=== PATIENT | male | born 1980 | race Hispanic/Latino ===

== ENCOUNTER 2021-08-31 09:21 | Inpatient (IN) | payer SELFPAY ==
--- NOTE | 2021-08-31 09:54 | Emergency Department Report ---
ED Chest Pain HPI - General Chief Complaint: Dyspnea/Respdistress Stated Complaint: RIGHT RIB PAIN Time Seen by Provider: 08/31/21 09:37 Source: patient, EMS Mode of arrival: Stretcher Limitations: No Limitations - History of Present Illness Initial Comments: 40-year-old male presents to the emergency department via EMS from home with complaint of right-sided chest pain and shortness of breath that started about 3 days ago while the patient was sleeping. He denies any past medical history. He does smoke cigarettes but denies any illicit drug use or alcohol dependence. He did not take anything, nor was given anything, for his symptoms prior to presentation today. The patient has a room air pulse ox of about 88 to 91% and he has signs of shortness of breath. No recent travel or sick contacts at home. - Related Data Allergies Allergy/AdvReac Type Severity Reaction Status Date / Time No Known Allergies Allergy Verified 08/31/21 09:26 Heart Score - HEART Score History: Slightly suspicious EKG: Non-specific Age: < 45 Risk factors: 1-2 risk factors Troponin: < normal limit HEART Score: 2 - EKG Read Time Time EKG Completed: 10:35 EKG Read Time: 10:36 - Critical Actions Critical Actions: 0-3 pts:0.9-1.7%risk of adverse cardiac event.Candidate for discharge ED Review of Systems ROS: Stated complaint: RIGHT RIB PAIN Other details as noted in HPI Comment: All other systems reviewed and negative Constitutional: denies: chills, fever Eyes: denies: eye pain, vision change ENT: denies: ear pain, throat pain Respiratory: shortness of breath. denies: cough Cardiovascular: chest pain. denies: edema Gastrointestinal: denies: abdominal pain, vomiting Genitourinary: denies: dysuria, discharge Musculoskeletal: denies: back pain, arthralgia Skin: denies: rash, lesions Neurological: denies: headache, weakness ED Past Medical Hx - Past Medical History Previous Medical History?: No - Surgical History Past Surgical History?: No ED Physical Exam - General Limitations: No Limitations - Other Other exam information: GENERAL: The patient is ill-appearing. HENT: Normocephalic. Atraumatic. Patient has moist mucous membranes. EYES: Extraocular motions are intact. NECK: Supple. Trachea is midline. CHEST/LUNGS: Clear to auscultation. There is tachypnea with shallow respirations. At points the patient appears to be hyperventilating. HEART/CARDIOVASCULAR: Regular. There is mild to moderate tachycardia. There is no murmur. ABDOMEN: Abdomen is soft. Right upper quadrant abdominal tenderness to palpation. No guarding. Patient has normal bowel sounds. There is no abdominal distention. SKIN: Skin is warm and dry. NEURO: The patient is awake, alert, and oriented. The patient is cooperative. The patient has no focal neurologic deficits. Normal speech. MUSCULOSKELETAL: There is no tenderness or deformity. There is no limitation range of motion. ED Course Vital Signs 08/31/21 08/31/21 08/31/21 09:26 09:50 10:19 Temperature 98.7 F Pulse Rate 112 H Respiratory 16 12 Rate Blood Pressure 148/100 [Left] O2 Sat by Pulse 98 93 Oximetry 08/31/21 14:38 Temperature Pulse Rate 84 Respiratory 16 Rate Blood Pressure 129/77 [Left] O2 Sat by Pulse 96 Oximetry - Consultations Consultation #1: 08/31/21 15:22 I spoke to the kettle firer on-call, Dr. Han. We discussed the patient's presentation, labs, imaging studies. They will consult on the patient. NEIL score - Neil Score Age > 65: (0) No Aspirin use within the Past 7 Days: (0) No 3 or more CAD Risk Factors: (0) No 2 or more Angina events in past 24 hrs: (1) Yes Known CAD with more than 50% Stenosis: (0) No Elevated Cardiac Markers: (0) No ST Deviation Greater than 0.5mm: (0) No NEIL Score: 1 ED Medical Decision Making - Lab Data Result diagrams: 08/31/21 10:09 08/31/21 10:09 Lab Results 08/31/21 08/31/21 08/31/21 Range/Units 10:09 10:09 10:09 WBC 19.7 H (4.5-11.0) K/mm3 RBC 5.42 H (3.65-5.03) M/mm3 Hgb 16.3 H (11.8-15.2) gm/dl Hct 49.8 H (35.5-45.6) % MCV 92 (84-94) fl MCH 30 (28-32) pg MCHC 33 (32-34) % RDW 13.2 (13.2-15.2) % Plt Count 404 (140-440) K/mm3 Lymph % (Auto) 9.2 L (13.4-35.0) % [place] % (Auto) 6.5 (0.0-7.3) % Eos % (Auto) 0.1 (0.0-4.3) % Baso % (Auto) 0.5 (0.0-1.8) % Lymph # (Auto) 1.8 (1.2-5.4) K/mm3 [place] # (Auto) 1.3 H (0.0-0.8) K/mm3 Eos # (Auto) 0.0 (0.0-0.4) K/mm3 Baso # (Auto) 0.1 (0.0-0.1) K/mm3 Seg Neutrophils % 83.7 H (40.0-70.0) % Seg Neutrophils # 16.5 H (1.8-7.7) K/mm3 PT 14.0 (12.2-14.9) Sec. INR 0.97 (0.87-1.13) D-Dimer 1510.13 H (0-234) ng/mlDDU Sodium 132 L (137-145) mmol/L Potassium 4.5 (3.6-5.0) mmol/L Chloride 96.5 L (98-107) mmol/L Carbon Dioxide 24 (22-30) mmol/L Anion Gap 16 mmol/L BUN 9 (9-20) mg/dL Creatinine 0.9 (0.8-1.3) mg/dL Estimated GFR > 60 ml/min BUN/Creatinine Ratio 10 % Glucose 140 H (75-100) mg/dL Calcium 9.4 (8.4-10.2) mg/dL Total Bilirubin 2.00 H (0.1-1.2) mg/dL AST 57 H (5-40) units/L ALT 120 H (7-56) units/L Alkaline Phosphatase 595 H (35-129) units/L Troponin T < 0.010 (0.00-0.029) ng/mL NT-Pro-B Natriuret Pep 18.81 (0-450) pg/mL Total Protein 8.6 H (6.3-8.2) g/dL Albumin 3.5 L (3.9-5) g/dL Albumin/Globulin Ratio 0.7 % Lipase (13-60) units/L 08/31/21 Range/Units 10:09 WBC (4.5-11.0) K/mm3 RBC (3.65-5.03) M/mm3 Hgb (11.8-15.2) gm/dl Hct (35.5-45.6) % MCV (84-94) fl MCH (28-32) pg MCHC (32-34) % RDW (13.2-15.2) % Plt Count (140-440) K/mm3 Lymph % (Auto) (13.4-35.0) % Sebastian % (Auto) (0.0-7.3) % Eos % (Auto) (0.0-4.3) % Baso % (Auto) (0.0-1.8) % Lymph # (Auto) (1.2-5.4) K/mm3 Sebastian # (Auto) (0.0-0.8) K/mm3 Eos # (Auto) (0.0-0.4) K/mm3 Baso # (Auto) (0.0-0.1) K/mm3 Seg Neutrophils % (40.0-70.0) % Seg Neutrophils # (1.8-7.7) K/mm3 PT (12.2-14.9) Sec. INR (0.87-1.13) D-Dimer (0-234) ng/mlDDU Sodium (137-145) mmol/L Potassium (3.6-5.0) mmol/L Chloride (98-107) mmol/L Carbon Dioxide (22-30) mmol/L Anion Gap mmol/L BUN (9-20) mg/dL Creatinine (0.8-1.3) mg/dL Estimated GFR ml/min BUN/Creatinine Ratio % Glucose (75-100) mg/dL Calcium (8.4-10.2) mg/dL Total Bilirubin (0.1-1.2) mg/dL AST (5-40) units/L ALT (7-56) units/L Alkaline Phosphatase (35-129) units/L Troponin T (0.00-0.029) ng/mL NT-Pro-B Natriuret Pep (0-450) pg/mL Total Protein (6.3-8.2) g/dL Albumin (3.9-5) g/dL Albumin/Globulin Ratio % Lipase 14 (13-60) units/L - EKG Data -: EKG Interpreted by Me EKG shows normal: sinus rhythm, axis, intervals, QRS complexes, ST-T waves Rate: tachycardia (106 bpm) - EKG Data When compared to previous EKG there are: previous EKG unavailable Interpretation: normal EKG (With tachycardia at 106 bpm) - Radiology Data Radiology results: image reviewed interpreted by me: Chest x-ray does not show any acute process. There are no pleural effusions, obvious pneumonia and there is no pneumothorax. No widened mediastinum. Abdominal x-ray shows nonspecific nonobstructive bowel gas. No free air. CTA CHEST WITH CONTRAST INDICATION / CLINICAL INFORMATION: SOB, elevated dimer 100 ML OMNI 350 . TECHNIQUE: Axial CT images were obtained through the chest after injection of IV contrast. 3 plane MIP and/or 3D reconstructions were produced. All CT scans at this location are performed using CT dose reduction for [employer] by means of automated exposure control. COMPARISON: None available. FINDINGS: Study is limited by breathing motion artifact. PULMONARY ARTERIES: No pulmonary emboli within the limits of this study. THORACIC AORTA: No significant abnormality. HEART: No significant abnormality. CORONARY ARTERY CALCIFICATION: None. MEDIASTINUM / MICHELLE: No significant abnormality. PLEURA: There is a very small amount of right pleural fluid. No pneumothorax. LUNGS: There is airspace opacity posteriorly in the right upper and lower lobe and in the left lower lobe . ADDITIONAL FINDINGS: None. UPPER ABDOMEN: There is cholelithiasis. SKELETAL STRUCTURES: No acute abnormality. IMPRESSION: 1. No CT evidence for pulmonary embolism within the limits of this study. 2. There is mild airspace opacity posteriorly bilaterally is likely represents atelectasis but pneumonia is included in the differential diagnosis. 3. There is a small right pleural effusion. 4. There is cholelithiasis. CT ABDOMEN AND PELVIS WITH CONTRAST INDICATION / CLINICAL INFORMATION: Abd p ain, elevated lft and bili 100 ML OMNI 350. TECHNIQUE: Axial CT images were obtained through the abdomen and pelvis after 100 cc of Omnipaque [address] scans at this location are performed using CT dose reduction for ALARA by means of automated exposure control. COMPARISON: None available. FINDINGS: LIVER: No discrete mass lesion is seen. There is dilatation of intrahepatic ducts in the left lobe of the liver. The common bile duct is normal in diameter. No discrete mass lesion is identified GALLBLADDER: Cholelithiasis BILE DUCTS: There is dilatation of intrahepatic ducts in the left lobe the liver. The cause for this dilatation is not identified. The common bile duct is normal in diameter. PANCREAS: No significant abnormality. SPLEEN: No significant abnormality. ADRENALS: No significant abnormality. RIGHT KIDNEY / URETER: No significant abnormality. LEFT KIDNEY / URETER: No significant abnormality. STOMACH / SMALL BOWEL: No significant abnormality. COLON: No significant abnormality. APPENDIX: No significant abnormality. PERITONEUM: No free fluid. No free air. No fluid collection. LYMPH NODES: No significant adenopathy. AORTA / ARTERIES: No significant abnormality. IVC / VEINS: No significant abnormality. URINARY BLADDER: No significant abnormality. REPRODUCTIVE ORGANS: No significant abnormality. ADDITIONAL FINDINGS: None. SKELETAL SYSTEM: No significant abnormality. IMPRESSION: 1. There is dilatation of intrahepatic bile ducts in the left lobe the liver. The cause is not identified. No mass lesion is seen. Common bile duct is normal in diameter. 2. There is no obstruction, inflammation, or free air. There are no abnormal fluid collections. - Medical Decision Making This patient initially presented with a complaint of right-sided chest pain that has been going on for the past 3 days. The patient has a room air oxygen saturation of 88% and appears in some respiratory distress with tachypnea, shallow respirations and appears to be hyperventilating. The patient was placed on oxygen via nasal cannula and then moved up to a Venturi mask. Chest x-ray does not show any pneumothorax, pneumonia, pleural effusions, widened mediastinum, or any other acute process. He was given some IV fluid resuscitation and a dose of IV analgesia with some mild improvement. At this point the patient started saying that the pain is no longer in the chest, but in the abdomen. He does have reproducible right upper quadrant abdominal tenderness to palpation without any guarding. Abdominal x-ray shows nonspecific nonobstructive bowel gas, no free air. Patient's labs show a leukocytosis of about 20,000, elevated LFTs and bilirubin, a very elevated D-dimer of about 1500. First negative troponin. The patient had a CT angiography of the chest, as well as a CT of the abdomen and pelvis with IV contrast. There is no evidence of pulmonary embolism or dissection. It shows bilateral basilar posterior atelectasis versus pneumonia, but I am leaning more towards pneumonia. Patient has cholelithiasis and there is intrahepatic bile duct dilatation without common bile duct dilatation. Patient has received multiple doses of IV analgesia, IV fluid resuscitation, IV antibiotics and a dose of Decadron. The patient is not vaccinated for COVID-19, although apparently he previously had a COVID-19 infection with the delta varia nt. Given the CT chest appearance and the hypoxia, we will still keep the patient as a PUI. GI has been contacted and consulted. Patient will be admitted to the hospital for further evaluation and treatment was accepted for patient by the hospitalist, Dr. Espana. Critical Care Time: Yes Critical care time in (mins) excluding proc time.: 35 Critical care attestation.: If time is entered above; I have spent that time in minutes in the direct care of this critically ill patient, excluding procedure time. Critical care time was spent on this patient in doing his initial evaluation, multiple reevaluations, ordering and interpretation of labs and imaging, multiple doses of IV analgesia, supplemental oxygen for his hypoxia, IV antibiotics, IV fluid resuscitation, multiple discussions with the patient. Critical Care Time: 35 minutes ED Disposition Clinical Impression: Suspected 2019 novel coronavirus infection, Hypoxia, Pneumonia, Cholelithiasis, Intrahepatic bile duct dilation, Elevated bilirubin, Transaminitis Disposition: ADMITTED INPATIENT Is pt being admited?: Yes Condition: Serious Instructions: Bacterial Pneumonia (ED) Referrals: PRIMARY CARE, [Primary Care Provider] - 3-5 Days Time of Disposition: 14:59
[2021-08-31] MEDS ORDERED: SODIUM CHLORIDE 0.9% 1000 ML 1,000 ML IV ONE (10:08)
[2021-08-31] MEDS ORDERED: MORPHINE 4 MG/1 ML INJ IV ONE ×2 (10:08→12:47)
--- NOTE | 2021-08-31 10:33 | XRay Report ---
CHEST 1 VIEW INDICATION: Shortness of breath, right sided CP. COMPARISON: None. FINDINGS: Support devices: None. Heart: Normal. Lungs/Pleura: There are low lung volumes with atelectatic changes in the bases. Lungs are otherwise c lear. No pleural effusion or pneumothorax. IMPRESSION: 1. No acute findings. Signer Name: Vimal Bautista MD Signed: 08/31/2021 10:28 AM Workstation Name: [id number]
[2021-08-31 11:15] LABS: Alanine Aminotransferase 120 units/L (7-56); Albumin 3.5 g/dL (3.9-5); BUN/Creatinine Ratio 10; Blood Urea Nitrogen 9 mg/dL (9-20); Calcium 9.4 mg/dL (8.4-10.2); Hemolysis Index 3
[2021-08-31 11:32] LABS: Basophils # (Auto) 0.1 K/mm3 (0.0-0.1); Basophils % (Auto) 0.5 % (0.0-1.8); Eosinophils % (Auto) 0.1 % (0.0-4.3); Hematocrit 49.8 % (35.5-45.6); Hemoglobin 16.3 gm/dl (11.8-15.2); Lymphocytes # (Auto) 1.8 K/mm3 (1.2-5.4); Lymphocytes % (Auto) 9.2 % (13.4-35.0); Mean Corpuscular HGB Conc 33 % (32-34); Mean Corpuscular Volume 92 fl (84-94); Monocytes # (Auto) 1.3 K/mm3 (0.0-0.8); Monocytes % (Auto) 6.5 % (0.0-7.3); Platelet Count 404 K/mm3 (140-440); Red Blood Count 5.42 M/mm3 (3.65-5.03); Red Cell Distribution Width 13.2 % (13.2-15.2)
--- NOTE | 2021-08-31 11:40 | XRay Report ---
ABDOMEN 2 VIEW INDICATION / CLINICAL INFORMATION: Abd pain. COMPARISON: None available. FINDINGS: TUBES / LINES: None. BOWEL GAS PATTERN: No significant abnormality. FREE AIR / EXTRALUMINAL GAS: None seen. ADDITIONAL FINDINGS: No significant additional findings. IMPRESSION: 1. No significant abnormality. Signer Name: Rickey Hadley MD Signed: 08/31/2021 11:36 AM Workstation Name: [id number]
[2021-08-31 11:42] LABS: INR 0.97 (0.87-1.13)
--- NOTE | 2021-08-31 14:26 | Cat Scan Report ---
CTA CHEST WITH CONTRAST INDICATION / CLINICAL INFORMATION: SOB, elevated dimer 100 ML OMNI 350 . TECHNIQUE: Axial CT images were obtained through the chest after injection of IV contrast. 3 plane [place] P and/or 3D reconstructions were produced. All CT scans at this location are performed using CT dose reduction for ALARA by means of automated exposure control. COMPARISON: None available. FINDINGS: Study is limited by breathing motion artifact. PULMONARY ARTERIES: No pulmonary emboli within the limits of this study. THORACIC AORTA: No significant abnormality. HEART: No significant abnormality. CORONARY ARTERY CALCIFICATION: None. MEDIASTINUM / MICHELLE: No significant abnormality. PLEURA: There is a very small amount of right pleural fluid. No pneumothorax. LUNGS: There is airspace opacity posteriorly in the right upper and lower lobe and in the left lower lobe . ADDITIONAL FINDINGS: None. UPPER ABDOMEN: There is cholelithiasis. SKELETAL STRUCTURES: No acute abnormality. IMPRESSION: 1. No CT evidence for pulmonary embolism within the limits of this study. 2. There is mild airspace opacity posteriorly bilaterally is likely represents atelectasis but pneumo ramón is included in the differential diagnosis. 3. There is a small right pleural effusion. 4. There is cholelithiasis. Signer Name: Mohan Rico MD Signed: 08/31/2021 2:21 PM Workstation Name: [id number]
--- NOTE | 2021-08-31 14:35 | Cat Scan Report ---
CT ABDOMEN AND PELVIS WITH CONTRAST INDICATION / CLINICAL INFORMATION: Abd pain, elevated lft and bili 100 ML OMNI 350. TECHNIQUE: Axial CT images were obtained through the abdomen and pelvis after 100 cc of Omnipaque [address] scans at this location are performed using CT dose reduction for ALARA by means of automated exposure control. COMPARISON: None available. FINDINGS: LIVER: No discrete mass lesion is seen. There is dilatation of intrahepatic ducts in the left lobe of the liver. The common bile duct is normal in diameter. No discrete mass lesion is identified GALLBLADDER: Cholelithiasis BILE DUCTS: There is dilatation of intrahepatic ducts in the left lobe the liver. The cause for this dilatation is not identified. The common bile duct is normal in diameter. PANCREAS: No significant abnormality. SPLEEN: No significant abnormality. ADRENALS: No significant abnormality. RIGHT KIDNEY / URETER: No significant abnormality. LEFT KIDNEY / URETER: No significant abnormality. STOMACH / SMALL BOWEL: No significant abnormality. COLON: No significant abnormality. APPENDIX: No significant abnormality. PERITONEUM: No free fluid. No free air. No fluid collection. LYMPH NODES: No significant adenopathy. AORTA / ARTERIES: No significant abnormality. IVC / VEINS: No significant abnormality. URINARY BLADDER: No significant abnormality. REPRODUCTIVE ORGANS: No significant abnormality. ADDITIONAL FINDINGS: None. SKELETAL SYSTEM: No significant abnormality. IMPRESSION: 1. There is dilatation of intrahepatic bile ducts in the left lobe the liver. The cause is not identi fied. No mass lesion is seen. Common bile duct is normal in diameter. 2. There is no obstruction, inflammation, or free air. There are no abnormal fluid collections. Signer Name: Mohan Rico MD Signed: 08/31/2021 2:29 PM Workstation Name: [email or web address]
[2021-08-31] MEDS ORDERED: AZITHROMYCIN/NS 500 MG/250 ML 500 MG/250 ML BAG IV ONE ×2 (14:46→19:00)
[2021-08-31] MEDS ORDERED: dexAMETHasone 4 MG/ML VIAL IV ONE ×2 (14:46→19:00)
[2021-08-31] MEDS ORDERED: PIPERACIL/TAZOBACTA 4.5/NS 100 4.5 GM/100 ML VIAL IV ONE (14:46)
[2021-08-31 16:27] LABS: C-Reactive Protein 15.9 mg/dL (0.00-1.30)
--- NOTE | 2021-08-31 17:02 | Gastroenterology Consultation ---
History of Present Illness - Reason for Consult Consult date: 08/31/21 Abnl LFT Requesting physician: MIKAELA TOLEDO - History of Present Illness The patient is a 40 yo male with no significant past medical hx who presents with R sided abdominal pain for the last 3 days. He has had fevers at home he thinks. He was noted to be hypoxic and with elevated LFTs in the ER. A CT scan showed possible COVID, but also gallstones, and duct dilation only in the L liver. He has nausea but no vomiting, and focal pain in the RUQ. He has a family hx of GS in his sister. He denies a prior hx of hepatitis or severe EtOH. He has no prior abdominal surgery, and is on no new medications. Past History Past Medical History: No medical history Past Surgical History: No surgical history Social history: no significant social history. denies: alcohol abuse Family history: other (Sister with GB disease) Medications and Allergies Allergies Allergy/AdvReac Type Severity Reaction Status Date / Time No Known Allergies Allergy Verified 08/31/21 09:26 Active Meds: Active Medications Piperacillin Sod/Tazobactam Sod (Zosyn/Ns 3.375gm/50ml) 3.375 gm in 50 mls @ 100 mls/hr IV Q8H BI; Protocol I HAVE REVIEWED / RECONCILED HOME MEDS Review of Systems - Review of Systems All systems: negative (as noted in the HPI) Exam - Constitutional Vital Signs: Temp Pulse Resp BP Pulse Ox 98.7 F 84 16 129/77 96 08/31/21 09:26 08/31/21 14:38 08/31/21 14:38 08/31/21 14:38 08/31/21 14:38 General appearance: no acute distress - EENT Eyes: PERRL, EOM intact ENT: hearing intact, clear oral mucosa - Neck Neck: supple, normal ROM - Respiratory Respiratory effort: normal Respiratory: bilateral: CTA - Cardiovascular Rhythm: regular Heart Sounds: Present: S1 & S2 Extremities: no ischemia, No edema - Gastrointestinal General gastrointestinal: Present: soft, tender (Tender in RUQ), non-distended - Integumentary Integumentary: Present: clear, warm, dry - Neurologic Neurological: alert and oriented x3 - Labs CBC & Chem 7: 08/31/21 10:09 08/31/21 10:09 Lab Results: Laboratory Results - last 24 hr 08/31/21 08/31/21 08/31/21 10:09 10:09 10:09 WBC 19.7 H RBC 5.42 H Hgb 16.3 H Hct 49.8 H MCV 92 MCH 30 MCHC 33 RDW 13.2 Plt Count 404 Lymph % (Auto) 9.2 L [place] % (Auto) 6.5 Eos % (Auto) 0.1 Baso % (Auto) 0.5 Lymph # (Auto) 1.8 [place] # (Auto) 1.3 H Eos # (Auto) 0.0 Baso # (Auto) 0.1 Seg Neutrophils % 83.7 H Seg Neutrophils # 16.5 H PT 14.0 INR 0.97 D-Dimer 1510.13 H Sodium 132 L Potassium 4.5 Chloride 96.5 L Carbon Dioxide 24 Anion Gap 16 BUN 9 Creatinine 0.9 Estimated GFR > 60 BUN/Creatinine Ratio 10 Glucose 140 H Calcium 9.4 Ferritin Total Bilirubin 2.00 H AST 57 H ALT 120 H Alkaline Phosphatase 595 H Lactate Dehydrogenase Troponin T < 0.010 C-Reactive Protein NT-Pro-B Natriuret Pep 18.81 Total Protein 8.6 H Albumin 3.5 L Albumin/Globulin Ratio 0.7 Lipase 08/31/21 08/31/21 08/31/21 10:09 15:10 15:10 WBC RBC Hgb Hct MCV MCH MCHC RDW Plt Count Lymph % (Auto) [place] % (Auto) Eos % (Auto) Baso % (Auto) Lymph # (Auto) [place] # (Auto) Eos # (Auto) Baso # (Auto) Seg Neutrophils % Seg Neutrophils # PT INR D-Dimer Sodium Potassium Chloride Carbon Dioxide Anion Gap BUN Creatinine Estimated GFR BUN/Creatinine Ratio Glucose Calcium Ferritin 451.3 H Total Bilirubin AST ALT Alkaline Phosphatase Lactate Dehydrogenase 204 H Troponin T C-Reactive Protein 15.90 H NT-Pro-B Natriuret Pep Total Protein Albumin Albumin/Globulin Ratio Lipase 14 Assessment and Plan - Patient Problems (1) Abnormal liver enzymes Current Visit: Yes Status: Acute Plan to address problem: - Given the gallstones and abnl CT, we will get an MRCP. The presentation would be unusual for choledocholithiasis given the normal-sized CBD. - Continue abx and IV fluids. - Check hepatitis panel. (2) Gallstones Current Visit: Yes Status: Acute
[2021-08-31] MEDS: PIPERACILLIN/TAZOBACTAM 3.375 3.375 GM/50 ML BAG IV SCH (17:58)
[2021-08-31] MEDS: SODIUM CHLORIDE 0.9% 1000 ML 1,000 ML IV SCH (18:02)
--- NOTE | 2021-08-31 20:55 | History and Physical Report ---
History of Present Illness Date of examination: 08/31/21 Date of admission: 08/31/21 14:59 Chief complaint: Shortness of breath and right-sided chest pain for 3 days History of present illness: 40-year-old male with no significant past medical history comes in for shortness of breath and right-sided chest pain radiating to the right upper quadrant. Since 3 days. No cough. Hypoxemia while in the emergency room. Not vaccinated. Also right upper quadrant pain present. The pulse ox of 88% to 91% on room air and very short of breath. No loss of smell or taste. ED work-up revealed bilateral posterior opacities on the lungs and and ductal dilation in the left lobe of the liver. - Past Medical History Previous Medical History?: No - Surgical History Past Surgical History?: No Review of Systems ROS: Stated complaint: RIGHT RIB PAIN Other details as noted in HPI Comment: All other systems reviewed and negative Constitutional: denies: chills, fever Eyes: denies: eye pain, vision change ENT: denies: ear pain, throat pain Respiratory: shortness of breath. denies: cough Cardiovascular: chest pain. denies: edema Gastrointestinal: denies: abdominal pain, vomiting Genitourinary: denies: dysuria, discharge Musculoskeletal: denies: back pain, arthralgia Skin: denies: rash, lesions Neurological: denies: headache, weakness Past History Past Medical History: No medical history Past Surgical History: No surgical history Social history: no significant social history. denies: alcohol abuse Family history: other (Sister with GB disease) Medications and Allergies Allergies Allergy/AdvReac Type Severity Reaction Status Date / Time No Known Allergies Allergy Verified 09/01/21 04:48 Active Meds: Active Medications Piperacillin Sod/Tazobactam Sod (Zosyn/Ns 3.375gm/50ml) 3.375 gm in 50 mls @ 100 mls/hr IV Q8H BI; Protocol Last Admin: 08/31/21 17:58 Dose: 100 mls/hr Documented by: Sodium Chloride (Nacl 0.9% 1000 Ml) 1,000 mls @ 125 mls/hr IV DIRECT BI Last Admin: 08/31/21 18:02 Dose: 125 mls/hr Documented by: Exam - Constitutional Vitals: Temp Pulse Resp BP Pulse Ox 98.7 F 84 16 129/77 96 08/31/21 09:26 08/31/21 14:38 08/31/21 14:38 08/31/21 14:38 08/31/21 14:38 General appearance: Present: mild distress, well-nourished - EENT Eyes: Present: PERRL ENT: hearing intact, clear oral mucosa - Neck Neck: Present: supple, normal ROM - Respiratory Respiratory effort: normal Respiratory: bilateral: CTA, rhonchi (Scattered) - Cardiovascular Heart rate: 78 Rhythm: regular Heart Sounds: Present: S1 & S2. Absent: rub, click - Extremities Extremities: no ischemia, pulses symmetrical, No edema Peripheral Pulses: within normal limits - Abdominal General gastrointestinal: Present: soft, non-tender, non-distended, normal bowel sounds Male genitourinary: Present: normal - Rectal Rectal Exam: deferred - Integumentary Integumentary: Present: clear, warm, dry - Musculoskeletal Musculoskeletal: gait normal, strength equal bilaterally - Psychiatric Psychiatric: appropriate mood/affect, intact judgment & insight - Neurologic Neurologic: CNII-XII intact, moves all extremities - Allied Health Allied health notes reviewed: nursing, case management HEART Score - HEART Score EKG: Non-specific Age: < 45 Risk factors: 1-2 risk factors Troponin: Troponin T < 0.010 ng/mL (0.00-0.029) 08/31/21 10:09 Troponin: < normal limit - Critical Actions Critical Actions: 0-3 pts:0.9-1.7%risk of adverse cardiac event.Candidate for discharge Results - Labs CBC & Chem 7: 08/31/21 10:09 08/31/21 10:09 Labs: Laboratory Last Values WBC 19.7 K/mm3 (4.5-11.0) H 08/31/21 10:09 RBC 5.42 M/mm3 (3.65-5.03) H 08/31/21 10:09 Hgb 16.3 gm/dl (11.8-15.2) H 08/31/21 10:09 Hct 49.8 % (35.5-45.6) H 08/31/21 10:09 MCV 92 fl (84-94) 08/31/21 10:09 MCH 30 pg (28-32) 08/31/21 10:09 MCHC 33 % (32-34) 08/31/21 10:09 RDW 13.2 % (13.2-15.2) 08/31/21 10:09 Plt Count 404 K/mm3 (140-440) 08/31/21 10:09 Lymph % (Auto) 9.2 % (13.4-35.0) L 08/31/21 10:09 [place] % (Auto) 6.5 % (0.0-7.3) 08/31/21 10:09 Eos % (Auto) 0.1 % (0.0-4.3) 08/31/21 10:09 Baso % (Auto) 0.5 % (0.0-1.8) 08/31/21 10:09 Lymph # (Auto) 1.8 K/mm3 (1.2-5.4) 08/31/21 10:09 [place] # (Auto) 1.3 K/mm3 (0.0-0.8) H 08/31/21 10:09 Eos # (Auto) 0.0 K/mm3 (0.0-0.4) 08/31/21 10:09 Baso # (Auto) 0.1 K/mm3 (0.0-0.1) 08/31/21 10:09 Seg Neutrophils % 83.7 % (40.0-70.0) H 08/31/21 10:09 Seg Neutrophils # 16.5 K/mm3 (1.8-7.7) H 08/31/21 10:09 PT 14.0 Sec. (12.2-14.9) 08/31/21 10:09 INR 0.97 (0.87-1.13) 08/31/21 10:09 D-Dimer 1510.13 ng/mlDDU (0-234) H 08/31/21 10:09 Sodium 132 mmol/L (137-145) L 08/31/21 10:09 Potassium 4.5 mmol/L (3.6-5.0) 08/31/21 10:09 Chloride 96.5 mmol/L (98-107) L 08/31/21 10:09 Carbon Dioxide 24 mmol/L (22-30) 08/31/21 10:09 Anion Gap 16 mmol/L 08/31/21 10:09 BUN 9 mg/dL (9-20) 08/31/21 10:09 Creatinine 0.9 mg/dL (0.8-1.3) 08/31/21 10:09 Estimated GFR > 60 ml/min 08/31/21 10:09 BUN/Creatinine Ratio 10 % 08/31/21 10:09 Glucose 140 mg/dL (75-100) H 08/31/21 10:09 Calcium 9.4 mg/dL (8.4-10.2) 08/31/21 10:09 Ferritin 451.3 ng/mL (30.0-300.0) H 08/31/21 15:10 Total Bilirubin 2.00 mg/dL (0.1-1.2) H 08/31/21 10:09 AST 57 units/L (5-40) H 08/31/21 10:09 ALT 120 units/L (7-56) H 08/31/21 10:09 Alkaline Phosphatase 595 units/L (35-129) H 08/31/21 10:09 Lactate Dehydrogenase 204 units/L (91-180) H 08/31/21 15:10 Troponin T < 0.010 ng/mL (0.00-0.029) 08/31/21 10:09 C-Reactive Protein 15.90 mg/dL (0.00-1.30) H 08/31/21 15:10 NT-Pro-B Natriuret Pep 18.81 pg/mL (0-450) 08/31/21 10:09 Total Protein 8.6 g/dL (6.3-8.2) H 08/31/21 10:09 Albumin 3.5 g/dL (3.9-5) L 08/31/21 10:09 Albumin/Globulin Ratio 0.7 % 08/31/21 10:09 Lipase 14 units/L (13-60) 08/31/21 10:09 Procalcitonin 0.63 ng/mL (<0.15) 08/31/21 15:10 Microbiology: Microbiology 08/31/21 15:10 Peripheral/Venous Blood Culture - Preliminary Culture in Progress 08/31/21 15:16 Peripheral/Venous Blood Culture - Preliminary Culture in Progress - Imaging and Cardiology EKG: report reviewed (Sinus tachycardia no acute ST-T wave changes) Chest x-ray: report reviewed Imaging and Cardiology: Abdominal CAT scan Bile duct there is dilation of intrahepatic ducts in the left lobe of the liver. The cause for this patient is not identified Final impression There is dilation of intrahepatic bile ducts in the left lobe of the liver the cause is not identified. No mass lesion is seen. Common bile duct is normal in diameter. There is no obstruction inflammation of.. There is There are no abnormal fluid collections. Abdominal x-ray No significant abnormality. Chest x-ray No acute findings Chest CTA No CT evidence for pulmonary embolism within the limits of the study There is mild airspace opacity posteriorly bilaterally likely represents atelectasis but pneumonia is included in the differential diagnosis There is small right pleural effusion There is cholelithiasis Assessment and Plan Advance Directives: Yes (Full code) VTE prophylaxis?: Chemical Plan of care discussed with patient/family: Yes - Patient Problems (1) Acute respiratory failure with hypoxia Current Visit: Yes Status: Acute Plan to address problem: Patient is hypoxic on room air and is improved with oxygen supplementation Possible Covid pneumonia Bilateral opacities on the CTA chest No opacities on the chest x-ray We will treat as Covid pneumonia for now Coronavirus PCR in a.m. oxygen supplementation as necessary (2) SIRS (systemic inflammatory response syndrome) Current Visit: Yes Status: Acute Plan to address problem: Patient clinical picture consistent with systemic inflammatory response syndrome. D-dimer is 1510 ferritin is 451 total bili is 2 AST is 57 ALT is 120 LDH is 204 CRP is 15.9. Also patient has a high white count. 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 Plan to address problem: Significance of intrahepatic bile duct dilatation on the left lobe with no common bile duct dilation is unclear GI consulted GI requested MRCP Liver enzymes are elevated Patient also has cholelithiasis but no common bile duct obstruction (5) Transaminitis Current Visit: Yes Status: Acute Plan to address problem: Liver enzymes are high Acute hepatitis profile requested Left hepatic lobe intrahepatic ducts dilated Etiology unclear (6) Hyponatremia Current Visit: Yes Status: Acute Plan to address problem: IV normal saline for 12 to 14 hours Recheck sodium levels (7) Malnutrition Current Visit: Yes Status: Chronic Qualifiers: Protein-calorie malnutrition severity: mild Plan to address problem: Dietary supplements initiated (8) DVT prophylaxis Current Visit: Yes Status: Acute Plan to address problem: On anticoagulation GI prophylaxis
[2021-08-31] MEDS ORDERED: ACETAMINOPHEN 325 MG TAB PO PRN (20:56)
[2021-08-31] MEDS ORDERED: ONDANSETRON 4 MG/2 ML INJ IV PRN (20:56)
[2021-08-31] MEDS ORDERED: METOCLOPRAMIDE 10 MG/2 ML INJ IV PRN (20:56)
[2021-08-31] MEDS ORDERED: cefTRIAXone/NS 2 GM/100 ML 2 GM/100 ML BAG IV SCH (22:00)
[2021-08-31] MEDS ORDERED: dexAMETHasone 4 MG/ML VIAL IV SCH (22:00)
[2021-08-31] MEDS: oxyCODONE /ACETAMINOPHEN 5-325MG TAB PO PRN (23:35)
[2021-09-01] MEDS: AZITHROMYCIN/NS 500 MG/250 ML 500 MG/250 ML BAG IV SCH ×2 (00:07→22:04)
[2021-09-01] MEDS: HEPARIN 5,000 UNIT/1 ML VIAL SUB-Q SCH ×3 (00:23→22:03)
[2021-09-01] MEDS: FAMOTIDINE 20 MG/2 ML INJ IV SCH ×2 (00:23→10:57)
[2021-09-01] MEDS: PIPERACILLIN/TAZOBACTAM 3.375 3.375 GM/50 ML BAG IV SCH (01:55)
[2021-09-01] MEDS: SODIUM CHLORIDE 0.9% 1000 ML 1,000 ML IV SCH ×2 (01:56→10:56)
[2021-09-01] MEDS: oxyCODONE /ACETAMINOPHEN 5-325MG TAB PO PRN ×2 (06:50→22:03)
[2021-09-01 07:59] LABS: Hematocrit 40.2 % (35.5-45.6); Hemoglobin 13.6 gm/dl (11.8-15.2); Mean Corpuscular HGB Conc 34 % (32-34); Mean Corpuscular Volume 91 fl (84-94); Platelet Count 307 K/mm3 (140-440); Red Blood Count 4.44 M/mm3 (3.65-5.03); Red Cell Distribution Width 12.9 % (13.2-15.2)
[2021-09-01 08:14] LABS: INR 1.13 (0.87-1.13)
[2021-09-01 08:29] LABS: Alanine Aminotransferase 62 units/L (7-56); Albumin 2.8 g/dL (3.9-5); BUN/Creatinine Ratio 19; Blood Urea Nitrogen 15 mg/dL (9-20); Calcium 8.4 mg/dL (8.4-10.2); Hemolysis Index 0
[2021-09-01] MEDS ORDERED: dexAMETHasone 4 MG/ML VIAL IV SCH (10:00)
[2021-09-01 10:23] LABS: Hepatitis C Virus Antibody Non-Reactive (NonReactive)
[2021-09-01] MEDS: PIPERACIL/TAZOBACTA 4.5/NS 100 4.5 GM/100 ML VIAL IV SCH ×2 (10:56→18:20)
--- NOTE | 2021-09-01 10:57 | Magnetic Resonance Report ---
MR abdomen MRCP INDICATION / CLINICAL INFORMATION: gallstones, abnl ct liver. TECHNIQUE: Multiplanar, multisequence MR images were obtained. CONTRAST: None COMPARISON: CT abdomen and pelvis 08/31/2021 FINDINGS: Bibasilar areas of atelectasis and consolidation as well as small pleural effusions are aga in seen. I see no abnormalities of the pancreas, kidneys, spleen, or adrenals. No inflammatory change s are seen in the abdomen. No evidence of bowel obstruction is noted. No lymphadenopathy is obvious. Large gallstone is again noted in the fundal region of the gallbladder. I do not see obvious gallblad akila inflammation or wall thickening. Extrahepatic biliary tree appears within normal limits with no d ilatation and no filling defects seen. The intrahepatic ducts in the right lobe as well as the medial segment of the left lobe show no abnormalities. The dilated ducts anteriorly in the lateral segment of the left lobe are again noted though I do not clearly see a source of dilatation. No obvious intra ductal lesion is identified though the left hepatic branch leading to this area of dilatation is not clearly seen to connect suggesting a site of obstruction. No mass is seen in this area however, by CT or MR. IMPRESSION: The lateral segment left lobe intrahepatic biliary dilatation is again noted similar to t he appearance on CT without a clear source seen. There is a defect between the dilated ducts and the normal caliber biliary tree which could be a focal point of obstruction though no mass is seen and et iology is unclear. I would be concerned about the possibility of a small cholangiocarcinoma given thi s appearance. Ultrasound could be attempted to see if this yields further information about the ducts in this area. ERCP may be needed. Signer Name: Shantanu Day MD Signed: 09/01/2021 10:52 AM Workstation Name: [id number]
[2021-09-01 11:30] LABS: Hepatitis B Surface Antigen Nonreactive (Negative)
[2021-09-01] MEDS ORDERED: FLU VACC QUAD 2021-22(6MOS UP)/PF 60 MCG/0.5 ML SYRINGE IM ONE (12:00)
[2021-09-01 17:40] LABS: Band Neutrophils # (Manual) 1.3 K/mm3; Platelet Estimate Consistent w Auto; RBC Morphology Normal; Total Cells Counted 100
--- NOTE | 2021-09-01 17:57 | Gastroenterology Progress Note ---
Assessment and Plan - Patient Problems (1) Abnormal liver enzymes Current Visit: Yes Status: Acute Plan to address problem: - CT/MRI with ?abnl L lobe biliary system, but on review this is mild and may be a hamartoma. - Elevated LFTs likely due to atypical pneumonia, and improved. - No symptoms of cholecystitis, and GB not inflammed on MRI; no need for surgical eval at present. - May need ERCP as outpatient; will decide after pneumonia resolved. (2) Gallstones Current Visit: Yes Status: Acute Subjective Date of service: 09/01/21 Principal diagnosis: Abnl LFT Interval history: The patient has minimal RUQ tenderness, and no N/V/F/C. He states he is breathing easier (but still on O2 via Ventimask). Objective - Constitutional Vitals: Temp Pulse Resp BP Pulse Ox 98.3 F 98 H 24 121/79 95 09/01/21 11:44 09/01/21 11:44 09/01/21 11:44 09/01/21 11:44 09/01/21 11:44 General appearance: no acute distress - Respiratory Respiratory effort: normal Respiratory: bilateral: CTA - Cardiovascular Rhythm: regular Heart Sounds: Present: S1 & S2 - Gastrointestinal General gastrointestinal: Present: soft, non-tender, non-distended - Labs CBC & Chem 7: 09/01/21 07:36 09/01/21 07:36 Labs: Laboratory Results - last 24 hr 09/01/21 09/01/21 09/01/21 07:36 07:36 07:36 WBC 25.1 H RBC 4.44 Hgb 13.6 Hct 40.2 D MCV 91 MCH 31 MCHC 34 RDW 12.9 L Plt Count 307 Add Manual Diff Complete Total Counted 100 Seg Neutrophils % Biometrics Instructor Seg Neuts % (Manual) 87.0 H Band Neutrophils % 5.0 Lymphocytes % (Manual) 2.0 L Monocytes % (Manual) 6.0 Nucleated RBC % Not Reportable Seg Neutrophils # Man 21.8 H Band Neutrophils # 1.3 Lymphocytes # (Manual) 0.5 L Abs React Lymphs (Man) 0.0 Monocytes # (Manual) 1.5 H Eosinophils # (Manual) 0.0 Basophils # (Manual) 0.0 Metamyelocytes # 0.0 Myelocytes # 0.0 Promyelocytes # 0.0 Blast Cells # 0.0 WBC Morphology Not Reportable Hypersegmented Neuts Not Reportable Hyposegmented Neuts Not Reportable Hypogranular Neuts Not Reportable Smudge Cells Not Reportable Toxic Granulation Not Reportable Toxic Vacuolation Not Reportable Dohle Bodies Not Reportable Pelger-Huet Anomaly Not Reportable Eliceo Rods Not Reportable Platelet Estimate Consistent w auto Clumped Platelets Not Reportable Plt Clumps, EDTA Not Reportable Large Platelets Not Reportable Giant Platelets Not Reportable Platelet Satelliting Not Reportable Plt Morphology Comment Not Reportable RBC Morphology Normal Dimorphic RBCs Not Reportable Polychromasia Not Reportable Hypochromasia Not Reportable Poikilocytosis Not Reportable Anisocytosis Not Reportable Microcytosis Not Reportable Macrocytosis Not Reportable Spherocytes Not Reportable Pappenheimer Bodies Not Reportable Sickle Cells Not Reportable Target Cells Not Reportable Tear Drop Cells Not Reportable Ovalocytes Not Reportable Helmet Cells Not Reportable [place] Bodies Not Reportable [place] Rings Not Reportable Fer Cells Not Reportable Bite Cells Not Reportable Crenated Cell Not Reportable Elliptocytes Not Reportable Acanthocytes (Spur) Not Reportable Rouleaux Not Reportable Hemoglobin C Crystals Not Reportable Schistocytes Not Reportable Malaria parasites Not Reportable Abel Bodies Not Reportable Hem Pathologist Commnt No PT 15.7 H INR 1.13 Sodium 134 L Potassium 4.2 Chloride 100.3 Carbon Dioxide 21 L Anion Gap 17 BUN 15 Creatinine 0.8 Estimated GFR > 60 BUN/Creatinine Ratio 19 Glucose 186 H Calcium 8.4 Total Bilirubin 1.00 AST 18 ALT 62 H Alkaline Phosphatase 380 H Total Protein 6.9 Albumin 2.8 L Albumin/Globulin Ratio 0.7 Coronavirus (PCR) Hepatitis A IgM Ab Hep Bs Antigen Hep B Core IgM Ab Hepatitis C Antibody 09/01/21 09/01/21 07:36 Unknown WBC RBC Hgb Hct MCV MCH MCHC RDW Plt Count Add Manual Diff Total Counted Seg Neutrophils % Seg Neuts % (Manual) Band Neutrophils % Lymphocytes % (Manual) Monocytes % (Manual) Nucleated RBC % Seg Neutrophils # Man Band Neutrophils # Lymphocytes # (Manual) Abs React Lymphs (Man) Monocytes # (Manual) Eosinophils # (Manual) Basophils # (Manual) Metamyelocytes # Myelocytes # Promyelocytes # Blast Cells # WBC Morphology Hypersegmented Neuts Hyposegmented Neuts Hypogranular Neuts Smudge Cells Toxic Granulation Toxic Vacuolation Dohle Bodies Pelger-Huet Anomaly [place]ice[place] Rods Platelet Estimate Clumped Platelets Plt Clumps, EDTA Large Platelets Giant Platelets Platelet Satelliting Plt Morphology Comment RBC Morphology Dimorphic RBCs Polychromasia Hypochromasia Poikilocytosis Anisocytosis Microcytosis Macrocytosis Spherocytes Pappenheimer Bodies Sickle Cells Target Cells Tear Drop Cells Ovalocytes Helmet Cells [place] Bodies [place] Rings [place] Cells Bite Cells Crenated Cell Elliptocytes Acanthocytes (Spur) Rouleaux Hemoglobin C Crystals Schistocytes Malaria parasites Abel Bodies Hem Pathologist Commnt PT INR Sodium Potassium Chloride Carbon Dioxide Anion Gap BUN Creatinine Estimated GFR BUN/Creatinine Ratio Glucose Calcium Total Bilirubin AST ALT Alkaline Phosphatase Total Protein Albumin Albumin/Globulin Ratio Coronavirus (PCR) Negative Hepatitis A IgM Ab Non-reactive Hep Bs Antigen Nonreactive Hep B Core IgM Ab Non-reactive Hepatitis C Antibody Non-reactive
--- NOTE | 2021-09-01 19:25 | Progress Note ---
Assessment and Plan Assessment and plan: 40-year-old male with no significant past medical history comes in with a 3-day history of progressive worsening right lower chest/right upper quadrant pleuritic chest pain and subjective fever but no nausea, vomiting or diarrhea. No cough. Noted be hypoxic in the ED. The pulse ox of 88% to 91% on room air and appears very short of breath. Not vaccinated against COVID-19. No loss of smell or taste. ED work-up and imaging studies revealed bilateral posterior opacities on the lungs and and ductal dilation in the left lobe of the liver, gallstones and elevated LFTs. GI consulted. Assessment: Acute onset worsening right upper quadrant/right lower thorax pleuritic pain x3 days Subjective fever but no documented temperature spike Imaging studies show gallstones without wall thickening not suggestive of cholecystitis Elevated LFTs, predominantly obstructive pattern with ALP 595 and a TBR 2.0 with intrabiliary obstruction on imaging studies, improving Lipase normal. No nausea, vomiting or diarrhea. Tolerating diet. Multifocal consolidation in right upper, right lower and left upper lobes on CTA. Noted to be hypoxic Elevated D-dimer and CRP but PCR negative for COVID-19. CTA negative for PE. Ordered ultrasound to rule out DVT. Mild hyponatremia, resolved Plan: GI consulted and evaluation is in progress MRCP ordered On empiric antibiotic therapy and supplemental oxygen Hemodynamically stable DVT prophylaxis Current Visit: Yes Status: Acute Plan to address problem: On anticoagulation GI prophylaxis Discussed with the patient in detail. History Interval history: Patient continues to experience right lower rib cage/right upper quadrant pleuritic pain but remains afebrile. No significant cough. Vital signs stable. No nausea or vomiting. Tolerating diet. GI following. Hospitalist Physical - Constitutional Vitals: Temp Pulse Resp BP Pulse Ox 99.1 F 90 22 111/73 92 09/01/21 18:32 09/01/21 18:32 09/01/21 18:32 09/01/21 18:32 09/01/21 18:32 General appearance: Present: mild distress, well-nourished - EENT Eyes: Present: PERRL ENT: clear oral mucosa - Neck Neck: Present: supple - Respiratory Respiratory effort: normal Respiratory: right: diminished (Diminished breath sounds in right lower thorax) - Cardiovascular Rhythm: regular - Extremities Extremities: No edema - Abdominal General gastrointestinal: soft, non-tender, non-distended, normal bowel sounds - Integumentary Integumentary: Absent: rash - Psychiatric Psychiatric: appropriate mood/affect - Neurologic Neurologic: no focal deficits, moves all extremities HEART Score - HEART Score EKG: Non-specific Age: < 45 Risk factors: 1-2 risk factors Troponin: Troponin T < 0.010 ng/mL (0.00-0.029) 08/31/21 10:09 Troponin: < normal limit - Critical Actions Critical Actions: 0-3 pts:0.9-1.7%risk of adverse cardiac event.Candidate for discharge Results - Labs CBC & Chem 7: 09/02/21 05:44 09/02/21 05:44 Labs: Laboratory Last Values WBC 25.1 K/mm3 (4.5-11.0) H 09/01/21 07:36 RBC 4.44 M/mm3 (3.65-5.03) 09/01/21 07:36 Hgb 13.6 gm/dl (11.8-15.2) 09/01/21 07:36 Hct 40.2 % (35.5-45.6) D 09/01/21 07:36 MCV 91 fl (84-94) 09/01/21 07:36 MCH 31 pg (28-32) 09/01/21 07:36 MCHC 34 % (32-34) 09/01/21 07:36 RDW 12.9 % (13.2-15.2) L 09/01/21 07:36 Plt Count 307 K/mm3 (140-440) 09/01/21 07:36 Lymph % (Auto) 9.2 % (13.4-35.0) L 08/31/21 10:09 [place] % (Auto) 6.5 % (0.0-7.3) 08/31/21 10:09 Eos % (Auto) 0.1 % (0.0-4.3) 08/31/21 10:09 Baso % (Auto) 0.5 % (0.0-1.8) 08/31/21 10:09 Lymph # (Auto) 1.8 K/mm3 (1.2-5.4) 08/31/21 10:09 Sampson # (Auto) 1.3 K/mm3 (0.0-0.8) H 08/31/21 10:09 Eos # (Auto) 0.0 K/mm3 (0.0-0.4) 08/31/21 10:09 Baso # (Auto) 0.1 K/mm3 (0.0-0.1) 08/31/21 10:09 Add Manual Diff Complete 09/01/21 07:36 Total Counted 100 09/01/21 07:36 Seg Neutrophils % [employer] 09/01/21 07:36 Seg Neuts % (Manual) 87.0 % (40.0-70.0) H 09/01/21 07:36 Band Neutrophils % 5.0 % 09/01/21 07:36 Lymphocytes % (Manual) 2.0 % (13.4-35.0) L 09/01/21 07:36 Monocytes % (Manual) 6.0 % (0.0-7.3) 09/01/21 07:36 Nucleated RBC % Not Reportable 09/01/21 07:36 Seg Neutrophils # 16.5 K/mm3 (1.8-7.7) H 08/31/21 10:09 Seg Neutrophils # Man 21.8 K/mm3 (1.8-7.7) H 09/01/21 07:36 Band Neutrophils # 1.3 K/mm3 09/01/21 07:36 Lymphocytes # (Manual) 0.5 K/mm3 (1.2-5.4) L 09/01/21 07:36 Abs React Lymphs (Man) 0.0 K/mm3 09/01/21 07:36 Monocytes # (Manual) 1.5 K/mm3 (0.0-0.8) H 09/01/21 07:36 Eosinophils # (Manual) 0.0 K/mm3 (0.0-0.4) 09/01/21 07:36 Basophils # (Manual) 0.0 K/mm3 (0.0-0.1) 09/01/21 07:36 Metamyelocytes # 0.0 K/mm3 09/01/21 07:36 Myelocytes # 0.0 K/mm3 09/01/21 07:36 Promyelocytes # 0.0 K/mm3 09/01/21 07:36 Blast Cells # 0.0 K/mm3 09/01/21 07:36 WBC Morphology Not Reportable 09/01/21 07:36 Hypersegmented Neuts Not Reportable 09/01/21 07:36 Hyposegmented Neuts Not Reportable 09/01/21 07:36 Hypogranular Neuts Not Reportable 09/01/21 07:36 Smudge Cells Not Reportable 09/01/21 07:36 Toxic Granulation Not Reportable 09/01/21 07:36 Toxic Vacuolation Not Reportable 09/01/21 07:36 Dohle Bodies Not Reportable 09/01/21 07:36 Pelger-Huet Anomaly Not Reportable 09/01/21 07:36 Eliceo Rods Not Reportable 09/01/21 07:36 Platelet Estimate Consistent w auto 09/01/21 07:36 Clumped Platelets Not Reportable 09/01/21 07:36 Plt Clumps, EDTA Not Reportable 09/01/21 07:36 Large Platelets Not Reportable 09/01/21 07:36 Giant Platelets Not Reportable 09/01/21 07:36 Platelet Satelliting Not Reportable 09/01/21 07:36 Plt Morphology Comment Not Reportable 09/01/21 07:36 RBC Morphology Normal 09/01/21 07:36 Dimorphic RBCs Not Reportable 09/01/21 07:36 Polychromasia Not Reportable 09/01/21 07:36 Hypochromasia Not Reportable 09/01/21 07:36 Poikilocytosis Not Reportable 09/01/21 07:36 Anisocytosis Not Reportable 09/01/21 07:36 Microcytosis Not Reportable 09/01/21 07:36 Macrocytosis Not Reportable 09/01/21 07:36 Spherocytes Not Reportable 09/01/21 07:36 Pappenheimer Bodies Not Reportable 09/01/21 07:36 Sickle Cells Not Reportable 09/01/21 07:36 Target Cells Not Reportable 09/01/21 07:36 Tear Drop Cells Not Reportable 09/01/21 07:36 Ovalocytes Not Reportable 09/01/21 07:36 Helmet Cells Not Reportable 09/01/21 07:36 [place] Bodies Not Reportable 09/01/21 07:36 [place] Rings Not Reportable 09/01/21 07:36 [place] Cells Not Reportable 09/01/21 07:36 Bite Cells Not Reportable 09/01/21 07:36 Crenated Cell Not Reportable 09/01/21 07:36 Elliptocytes Not Reportable 09/01/21 07:36 Acanthocytes (Spur) Not Reportable 09/01/21 07:36 Rouleaux Not Reportable 09/01/21 07:36 Hemoglobin C Crystals Not Reportable 09/01/21 07:36 Schistocytes Not Reportable 09/01/21 07:36 Malaria parasites Not Reportable 09/01/21 07:36 Abel Bodies Not Reportable 09/01/21 07:36 Hem Pathologist Commnt No 09/01/21 07:36 PT 15.7 Sec. (12.2-14.9) H 09/01/21 07:36 INR 1.13 (0.87-1.13) 09/01/21 07:36 D-Dimer 1510.13 ng/mlDDU (0-234) H 08/31/21 10:09 Sodium 134 mmol/L (137-145) L 09/01/21 07:36 Potassium 4.2 mmol/L (3.6-5.0) 09/01/21 07:36 Chloride 100.3 mmol/L (98-107) 09/01/21 07:36 Carbon Dioxide 21 mmol/L (22-30) L 09/01/21 07:36 Anion Gap 17 mmol/L 09/01/21 07:36 BUN 15 mg/dL (9-20) 09/01/21 07:36 Creatinine 0.8 mg/dL (0.8-1.3) 09/01/21 07:36 Estimated GFR > 60 ml/min 09/01/21 07:36 BUN/Creatinine Ratio 19 % 09/01/21 07:36 Glucose 186 mg/dL (75-100) H 09/01/21 07:36 Calcium 8.4 mg/dL (8.4-10.2) 09/01/21 07:36 Ferritin 451.3 ng/mL (30.0-300.0) H 08/31/21 15:10 Total Bilirubin 1.00 mg/dL (0.1-1.2) 09/01/21 07:36 AST 18 units/L (5-40) 09/01/21 07:36 ALT 62 units/L (7-56) H 09/01/21 07:36 Alkaline Phosphatase 380 units/L (35-129) H 09/01/21 07:36 Lactate Dehydrogenase 204 units/L (91-180) H 08/31/21 15:10 Troponin T < 0.010 ng/mL (0.00-0.029) 08/31/21 10:09 C-Reactive Protein 15.90 mg/dL (0.00-1.30) H 08/31/21 15:10 NT-Pro-B Natriuret Pep 18.81 pg/mL (0-450) 08/31/21 10:09 Total Protein 6.9 g/dL (6.3-8.2) 09/01/21 07:36 Albumin 2.8 g/dL (3.9-5) L 09/01/21 07:36 Albumin/Globulin Ratio 0.7 % 09/01/21 07:36 Lipase 14 units/L (13-60) 08/31/21 10:09 Procalcitonin 0.63 ng/mL (<0.15) 08/31/21 15:10 Coronavirus (PCR) Negative (Negative) 09/01/21 Unknown Hepatitis A IgM Ab Non-reactive (NonReactive) 09/01/21 07:36 Hep Bs Antigen Nonreactive (Negative) 09/01/21 07:36 Hep B Core IgM Ab Non-reactive (NonReactive) 09/01/21 07:36 Hepatitis C Antibody Non-reactive (NonReactive) 09/01/21 07:36 Microbiology: Microbiology 08/31/21 15:10 Peripheral/Venous Blood Culture - Preliminary NO GROWTH AFTER 24 HOURS 08/31/21 15:16 Peripheral/Venous Blood Culture - Preliminary NO GROWTH AFTER 24 HOURS Active Medications - Current Medications Current Medications: Generic Name Dose Route Start Last Admin Trade Name Freq PRN Reason Stop Dose Admin Acetaminophen 650 mg 08/31/21 20:56 Acetaminophen 325 Mg Tab PO Q4H PRN Pain MILD(1-3)/Fever >100.5/MINER Dexamethasone 8 mg 09/01/21 10:00 09/01/21 10:57 Dexamethasone 4 Mg/Ml Vial IV 09/09/21 10:01 8 mg Q24H BI Administration Heparin Sodium (Porcine) 5,000 unit 08/31/21 22:00 09/01/21 10:57 Heparin 5,000 Unit/1 Ml Vial SUB-Q 5,000 unit Q12HR BI Administration Sodium Chloride 1,000 mls @ 125 mls/hr 08/31/21 17:15 09/01/21 10:56 Nacl 0.9% 1000 Ml IV 125 mls/hr DIRECT BI Administration Azithromycin 500 mg in 250 mls @ 250 mls/hr 08/31/21 22:00 09/01/21 00:07 Zithromax/Ns IV 09/04/21 22:59 Not Given Q24H BI Piperacillin Sod/Tazobactam Sod 4.5 gm in 100 mls @ 200 mls/hr 09/01/21 10:00 09/01/21 10:56 Zosyn/Ns 4.5gm/100ml IV 200 mls/hr Q8H BI Administration Metoclopramide HCl 10 mg 08/31/21 20:56 Metoclopramide 10 Mg/2 Ml Inj IV Q6H PRN Nausea And Vomiting Ondansetron HCl 4 mg 08/31/21 20:56 Ondansetron 4 Mg/2 Ml Inj IV Q8H PRN Nausea And Vomiting Oxycodone/Acetaminophen 1 tab 08/31/21 20:56 09/01/21 06:50 Oxycodone /Acetaminophen 5-325mg Tab PO 1 tab Q6H PRN Administration Pain, Moderate (4-6) Sodium Chloride 10 ml 08/31/21 22:00 09/01/21 10:57 Sodium Chloride 0.9% 10 Ml Flush Syringe IV 10 ml BID BI Administration Sodium Chloride 10 ml 08/31/21 20:56 Sodium Chloride 0.9% 10 Ml Flush Syringe IV PRN PRN LINE FLUSH Nutrition/Malnutrition Assess - Dietary Evaluation Nutrition/Malnutrition Findings: Nutrition Notes Start: 09/01/21 17:12 Freq: Status: Active Protocol: Document 09/01/21 17:12 GISELLE (Rec: 09/01/21 17:42 GISELLE [id number]) Nutrition Notes Need for Assessment generated from: MD Order Initial or Follow up Assessment Current Diagnosis Respiratory Failure Other Pertinent Diagnosis SIRS, Pneumonia, Intrahepatic bile duct dilation, Transaminitis. Current Diet NPO (since 09/01 12:26). Labs/Tests 09/01: Na 134, CO2 21, Glu 186 , ALT 62, AlkPhos 380, LacDH 204, C-RP 15.9, Alb 2.8. Pertinent Medications 09/01: Nutritionally unremarkable. Height 6 ft Weight 105.5 kg [place] Body Weight (kg) 80.90 BMI 31.5 Intake Prior to Admission Excellent Weight Status Obese Subjective/Other Information RD consult for Skin risk assessment; < or = 18, and Dietray supplements order. Pt shows no signs of concern for skin risk at the trime, according to Physical Assessment History notes. Pt is currently on NPO, not a candidate for dietary supplements at the time. Percent of energy/protein needs met: Pt currently on NPO. Burn Absent Trauma Absent GI Symptoms Nausea Food Allergy No Skin Integrity/Comment lClear, warm, dry. Current % PO Good (75-100%) Minimum of two criteria No #1 Nutrition Diagnosis No nutrition diagnosis at this time Comments: Pt shows no signs of concern for skin risk at the trime, according to Physical Assessment History notes. Pt is currently on NPO, not a candidate for dietary supplements at the time. Is patient on ventilator? No Is Patient Ambulatory and/or Out of Bed Yes REE-([facility]-ambulatory/OOB) [ 2597.400 NUTR.[id number]] Kcal/Kg value to use for calculation 20 Approximate Energy Requirements Using 2110 kcal/Kg Calculation Used for Recommendations Kcal/kg Additional Notes Protein: 1-1.2 g/Kg; 81-97 g/ day (from IBW + critical care) . Fluids: 1 ml/Kcal, or as per MD. Nutrition Intervention Change Diet Order: Continue NPO as per MD; when pertinent, advance to Cardiac Diet. Goal #1 Maintain body weight within +/ -3% of admission BWt during LOS. Goal #2 Reach and maintain acceptable chemistry lab values during LOS. Follow-Up By: 09/08/21 Additional Comments Continue monitoring food tolerance, %PO intake of meals , Hydration, and BM.
[2021-09-02] MEDS: PIPERACIL/TAZOBACTA 4.5/NS 100 4.5 GM/100 ML VIAL IV SCH ×3 (02:00→17:13)
[2021-09-02] MEDS: SODIUM CHLORIDE 0.9% 1000 ML 1,000 ML IV SCH (05:35)
[2021-09-02 06:07] LABS: Hematocrit 38.5 % (35.5-45.6); Hemoglobin 12.6 gm/dl (11.8-15.2); Mean Corpuscular HGB Conc 33 % (32-34); Mean Corpuscular Volume 91 fl (84-94); Platelet Count 332 K/mm3 (140-440); Red Blood Count 4.21 M/mm3 (3.65-5.03); Red Cell Distribution Width 13.1 % (13.2-15.2)
[2021-09-02 06:34] LABS: Alanine Aminotransferase 52 units/L (7-56); Albumin 2.5 g/dL (3.9-5); BUN/Creatinine Ratio 18; Blood Urea Nitrogen 20 mg/dL (9-20); Calcium 8.8 mg/dL (8.4-10.2); Hemolysis Index 2
[2021-09-02 08:23] LABS: Band Neutrophils # (Manual) 1.4 K/mm3; Total Cells Counted 100
[2021-09-02 08:24] LABS: Platelet Estimate Consistent w Auto; RBC Morphology Normal
--- NOTE | 2021-09-02 09:37 | Gastroenterology Progress Note ---
Assessment and Plan - Patient Problems (1) Abnormal liver enzymes Current Visit: Yes Status: Acute Plan to address problem: - CT/MRI with ?abnl L lobe biliary system, but on review this is mild and may be a hamartoma. - Elevated LFTs likely due to atypical pneumonia, and improved. Elevated WBC likely from pneumonia and steroids. - No symptoms of cholecystitis, and GB not inflammed on MRI; no need for surgical eval at present. - May need ERCP as outpatient; will decide after pneumonia resolved. (2) Gallstones Current Visit: Yes Status: Acute Subjective Date of service: 09/02/21 Principal diagnosis: Abnl LFT Interval history: The patient has weaned to NC from Venti[employer]. He had no fevers overnight, and is tolerating PO intake without N/V/abdominal pain. He remains SOB, and has pl euritic chest pain with coughing. Objective - Constitutional Vitals: Temp Pulse Resp BP Pulse Ox 97.7 F 86 18 123/78 97 09/02/21 04:21 09/02/21 04:21 09/02/21 04:21 09/02/21 04:21 09/02/21 04:21 General appearance: no acute distress - EENT Eyes: PERRL, EOM intact - Respiratory Respiratory effort: normal Respiratory: bilateral: CTA - Cardiovascular Rhythm: regular Heart Sounds: Present: S1 & S2 - Gastrointestinal General gastrointestinal: Present: soft, non-tender, non-distended - Labs CBC & Chem 7: 09/02/21 05:44 09/02/21 05:44 Labs: Laboratory Results - last 24 hr 09/01/21 09/01/21 09/01/21 07:36 07:36 Unknown WBC RBC Hgb Hct MCV MCH MCHC RDW Plt Count Add Manual Diff Complete Total Counted 100 Seg Neutrophils % Seg Neuts % (Manual) 87.0 H Band Neutrophils % 5.0 Lymphocytes % (Manual) 2.0 L Monocytes % (Manual) 6.0 Nucleated RBC % Not Reportable Seg Neutrophils # Man 21.8 H Band Neutrophils # 1.3 Lymphocytes # (Manual) 0.5 L Abs React Lymphs (Man) 0.0 Monocytes # (Manual) 1.5 H Eosinophils # (Manual) 0.0 Basophils # (Manual) 0.0 Metamyelocytes # 0.0 Myelocytes # 0.0 Promyelocytes # 0.0 Blast Cells # 0.0 WBC Morphology Not Reportable Hypersegmented Neuts Not Reportable Hyposegmented Neuts Not Reportable Hypogranular Neuts Not Reportable Smudge Cells Not Reportable Toxic Granulation Not Reportable Toxic Vacuolation Not Reportable Dohle Bodies Not Reportable Pelger-Huet Anomaly Not Reportable Eliceo Rods Not Reportable Platelet Estimate Consistent w auto Clumped Platelets Not Reportable Plt Clumps, EDTA Not Reportable Large Platelets Not Reportable Giant Platelets Not Reportable Platelet Satelliting Not Reportable Plt Morphology Comment Not Reportable RBC Morphology Normal Dimorphic RBCs Not Reportable Polychromasia Not Reportable Hypochromasia Not Reportable Poikilocytosis Not Reportable Anisocytosis Not Reportable Microcytosis Not Reportable Macrocytosis Not Reportable Spherocytes Not Reportable Pappenheimer Bodies Not Reportable Sickle Cells Not Reportable Target Cells Not Reportable Tear Drop Cells Not Reportable Ovalocytes Not Reportable Helmet Cells Not Reportable [place] Bodies Not Reportable [place] Rings Not Reportable Fer Cells Not Reportable Bite Cells Not Reportable Crenated Cell Not Reportable Elliptocytes Not Reportable Acanthocytes (Spur) Not Reportable Rouleaux Not Reportable Hemoglobin C Crystals Not Reportable Schistocytes Not Reportable Malaria parasites Not Reportable Abel Bodies Not Reportable Hem Pathologist Commnt No Sodium Potassium Chloride Carbon Dioxide Anion Gap BUN Creatinine Estimated GFR BUN/Creatinine Ratio Glucose Calcium Total Bilirubin AST ALT Alkaline Phosphatase Total Protein Albumin Albumin/Globulin Ratio Coronavirus (PCR) Negative Hepatitis A IgM Ab Non-reactive Hep Bs Antigen Nonreactive Hep B Core IgM Ab Non-reactive Hepatitis C Antibody Non-reactive 09/02/21 09/02/21 05:44 05:44 WBC 28.1 H RBC 4.21 Hgb 12.6 Hct 38.5 MCV 91 MCH 30 MCHC 33 RDW 13.1 L Plt Count 332 Add Manual Diff Complete Total Counted 100 Seg Neutrophils % [place] [employer] Seg Neuts % (Manual) 89.0 H Band Neutrophils % 5.0 Lymphocytes % (Manual) 4.0 L Monocytes % (Manual) 2.0 Nucleated RBC % Not Reportable Seg Neutrophils # Man 25.0 H Band Neutrophils # 1.4 Lymphocytes # (Manual) 1.1 L Abs React Lymphs (Man) 0.0 Monocytes # (Manual) 0.6 Eosinophils # (Manual) 0.0 Basophils # (Manual) 0.0 Metamyelocytes # 0.0 Myelocytes # 0.0 Promyelocytes # 0.0 Blast Cells # 0.0 WBC Morphology Not Reportable Hypersegmented Neuts Not Reportable Hyposegmented Neuts Not Reportable Hypogranular Neuts Not Reportable Smudge Cells Not Reportable Toxic Granulation Not Reportable Toxic Vacuolation Not Reportable Dohle Bodies Not Reportable Pelger-Huet Anomaly Not Reportable Eliceo Rods Not Reportable Platelet Estimate Consistent w auto Clumped Platelets Not Reportable Plt Clumps, EDTA Not Reportable Large Platelets Not Reportable Giant Platelets Not Reportable Platelet Satelliting Not Reportable Plt Morphology Comment Not Reportable RBC Morphology Normal Dimorphic RBCs Not Reportable Polychromasia Not Reportable Hypochromasia Not Reportable Poikilocytosis Not Reportable Anisocytosis Not Reportable Microcytosis Not Reportable Macrocytosis Not Reportable Spherocytes Not Reportable Pappenheimer Bodies Not Reportable Sickle Cells Not Reportable Target Cells Not Reportable Tear Drop Cells Not Reportable Ovalocytes Not Reportable Helmet Cells Not Reportable [place] Bodies Not Reportable [place] Rings Not Reportable Fer Cells Not Reportable Bite Cells Not Reportable Crenated Cell Not Reportable Elliptocytes Not Reportable Acanthocytes (Spur) Not Reportable Rouleaux Not Reportable Hemoglobin C Crystals Not Reportable Schistocytes Not Reportable Malaria parasites Not Reportable Abel Bodies Not Reportable Hem Pathologist Commnt No Sodium 137 Potassium 4.3 Chloride 103.7 Carbon Dioxide 22 Anion Gap 16 BUN 20 Creatinine 1.1 Estimated GFR > 60 BUN/Creatinine Ratio 18 Glucose 135 H Calcium 8.8 Total Bilirubin 0.60 AST 24 ALT 52 Alkaline Phosphatase 352 H Total Protein 7.0 Albumin 2.5 L Albumin/Globulin Ratio 0.6 Coronavirus (PCR) Hepatitis A IgM Ab Hep Bs Antigen Hep B Core IgM Ab Hepatitis C Antibody
[2021-09-02] MEDS: HEPARIN 5,000 UNIT/1 ML VIAL SUB-Q SCH ×2 (10:06→22:11)
--- NOTE | 2021-09-02 11:16 | Consultation ---
History of Present Illness - Reason for Consult Consult date: 09/02/21 - History of Present Illness 40-year-old man no past medical history presented to the hospital complaining of shortness of breath and right-sided chest pain. This began approximate 3 days prior to admission, he was found to be hypoxemic on admission. He is not vaccinated against Covid. Afebrile since admission with tachycardia, leukocytosis to 28.1. Covid negative. Hepatitis serologies negative normal renal function, elevated procalcitonin. Blood cultures no growth so far. Currently on non-rebreather. Imaging personally reviewed: MRCP: Intrahepatic biliary dilatation Chest x-ray: No acute findings. Chest CTA: No evidence of pulmonary embolism. Mild airspace opacity posteriorly Review of Systems: Bold if positive, otherwise negative General: fevers, chills, rigors HEENT: visual disturbance, diplopia, eye pain Respiratory: cough, sputum, hemoptysis, shortness of breath Cardiovascular: chest pain, syncope Gastrointestinal: nausea, vomiting, diarrhea, abdominal pain Genitourinary: dysuria, hematuria, flank pain Musculoskeletal: neck pain, back pain, joint pain, edema Neurologic: headaches, seizures Hematologic: easy bruising or bleeding Endocrine: night sweats, acute weight loss Skin: rash, jaundice, redness Psychiatric: suicidal, homicidal ideation Past History Past Medical History: No medical history Past Surgical History: No surgical history Social history: no significant social history. denies: alcohol abuse Family history: other (Sister with GB disease) Medications and Allergies Allergies Allergy/AdvReac Type Severity Reaction Status Date / Time No Known Allergies Allergy Verified 09/01/21 04:48 Active Meds: Active Medications Acetaminophen (Acetaminophen 325 Mg Tab) 650 mg PO Q4H PRN PRN Reason: Pain MILD(1-3)/Fever >100.5/MINER Heparin Sodium (Porcine) (Heparin 5,000 Unit/1 Ml Vial) 5,000 unit SUB-Q Q12HR BI Last Admin: 09/02/21 10:06 Dose: 5,000 unit Documented by: Sodium Chloride (Nacl 0.9% 1000 Ml) 1,000 mls @ 125 mls/hr IV DIRECT BI Last Admin: 09/02/21 05:35 Dose: 125 mls/hr Documented by: Azithromycin (Zithromax/Ns) 500 mg in 250 mls @ 250 mls/hr IV Q24H BI Stop: 09/04/21 22:59 Last Admin: 09/01/21 22:04 Dose: 250 mls/hr Documented by: Piperacillin Sod/Tazobactam Sod (Zosyn/Ns 4.5gm/100ml) 4.5 gm in 100 mls @ 200 mls/hr IV Q8H [facility] Last Admin: 09/02/21 10:54 Dose: 200 mls/hr Documented by: Ondansetron HCl (Ondansetron 4 Mg/2 Ml Inj) 4 mg IV Q8H PRN PRN Reason: Nausea And Vomiting Oxycodone/Acetaminophen (Oxycodone /Acetaminophen 5-325mg Tab) 1 tab PO Q6H PRN PRN Reason: Pain, Moderate (4-6) Last Admin: 09/01/21 22:03 Dose: 1 tab Documented by: Sodium Chloride (Sodium Chloride 0.9% 10 Ml Flush Syringe) 10 ml IV BID [facility] Last Admin: 09/02/21 10:54 Dose: 10 ml Documented by: Sodium Chloride (Sodium Chloride 0.9% 10 Ml Flush Syringe) 10 ml IV PRN PRN PRN Reason: LINE FLUSH Physical Examination - Physical Exam Narrative exam: Physical Exam: Constitutional: Alert, cooperative. No acute distress Head, Ears, Nose: Normocephalic, atraumatic. External ears, nose normal Eyes: Conjunctivae/corneas clear. No icterus. No ptosis. Neck: Supple, no meningeal signs Oral: dentition fair, no thrush Cardiovascular: S1, S2 normal. Respiratory: Good air entry, clear to auscultation bilaterally GI: Soft, non-tender; bowel sounds normal. No peritoneal signs. Musculoskeletal: No pedal edema, no cyanosis. Skin: No rash or abscess Hem/Lymphatic: No palpable cervical or supraclavicular nodes. No lymphangitis Psych: Mood ok. Affect normal Neurological: Awake, alert, oriented. No gross abnormality - Constitutional Vitals: Vital Signs Temp Pulse Resp BP Pulse Ox 97.7 F 86 18 123/78 97 09/02/21 04:21 09/02/21 04:21 09/02/21 04:21 09/02/21 04:21 09/02/21 04:21 Temperature -Last 24 Hours Temperature 97.7 F Temperature 97.9 F Temperature 99.1 F Temperature 98.3 F Results - Labs CBC & Chem 7: 09/02/21 05:44 09/02/21 05:44 Labs: Abnormal lab results 09/01/21 09/02/21 09/02/21 Range/Units 07:36 05:44 05:44 WBC 28.1 H (4.5-11.0) K/mm3 RDW 13.1 L (13.2-15.2) % Seg Neuts % (Manual) 87.0 H 89.0 H (40.0-70.0) % Lymphocytes % (Manual) 2.0 L 4.0 L (13.4-35.0) % Seg Neutrophils # Man 21.8 H 25.0 H (1.8-7.7) K/mm3 Lymphocytes # (Manual) 0.5 L 1.1 L (1.2-5.4) K/mm3 Monocytes # (Manual) 1.5 H (0.0-0.8) K/mm3 Glucose 135 H (75-100) mg/dL Alkaline Phosphatase 352 H (35-129) units/L Albumin 2.5 L (3.9-5) g/dL Assessment and Plan Cultures: Blood culture no growth so far. A/P: 40 yo M no PMHx now with: #SIRS/Sepsis: with tachycardia and leukocytosis. Unclear etiology. Pneumonia vs intra-abdominal pathology #Acute hypoxic respiratory failure: possibly early pneumonia seen on CT chest, slightly elevated procalcitonin #Choledocholithiasis: no acute cholecystitis seen Recs: -Agree with Zosyn for now. Was previously on steroids -Trend white count Thank you for the consult, we will continue to follow. MD Margie Mcl[facility] O: [phone] F: [phone]
--- NOTE | 2021-09-02 12:03 | Electrocardiograph Report ---
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
[2021-09-02] MEDS ORDERED: WATER FOR INJ Sterile (PF) 10 ML IV ONE (14:07)
[2021-09-02 14:41] LABS: Bilirubin,Urine NEG (Negative); Blood,Urine LG (Negative); Color,Urine Yellow (Yellow); Mucus,Urine FEW /HPF
[2021-09-02 14:44] LABS: RBC,Urine > 182.0 /HPF (0.0-6.0)
[2021-09-02] MEDS ORDERED: SINCALIDE 5 MCG VIAL IV ONE (15:00)
--- NOTE | 2021-09-02 15:04 | Event Note ---
Date: 09/02/21 Chart reviewed full consult to follow: Stopped IVF's Abx per ID Prone to help with oxygenation Incentive woo to bedside Smoking cessation
--- NOTE | 2021-09-02 15:27 | Vascular Lab Report ---
DUPLEX DOPPLER LOWER EXTREMITY VEINS, BILATERAL INDICATION / CLINICAL INFORMATION: Elevated D-dimer, rule out DVT. TECHNIQUE: Duplex doppler imaging was performed through the veins of both lower extremities using maged ous compression and other maneuvers. COMPARISON: None available. FINDINGS: RIGHT COMMON FEMORAL VEIN: Negative. RIGHT FEMORAL VEIN: Negative. RIGHT POPLITEAL VEIN: Negative. RIGHT CALF VEINS: Negative. LEFT COMMON FEMORAL VEIN: Negative. LEFT FEMORAL VEIN: Negative. LEFT POPLITEAL VEIN: Negative. LEFT CALF VEINS: Negative. ADDITIONAL FINDINGS: None. IMPRESSION: 1. No sonographic evidence for DVT in either lower extremity. Scribed by: Yulissa Haskins RDMS, RVT Scribed: 09/02/2021 2:09 PM I have reviewed the images, agree with this report, and edited this report as needed. Signer Name: Jorge Luis Casarez MD Signed: 09/02/2021 3:22 PM Workstation Name: [id number]
--- NOTE | 2021-09-02 16:00 | Nuclear Medicine Report ---
NUCLEAR MEDICINE HEPATOBILIARY SCAN INDICATION: Biliary obstruction, sepsis, RUQ pain. TECHNIQUE: Radiotracer: Tc-99m mebrofenin (by IV): 5.2 mCi. Gallbladder Stimulant: 2.1 Cholecystokinin (in mcg by IV) COMPARISON: CT and MRI 2 days prior. FINDINGS: Hepatic activity: Normal. Biliary activity: Normal. Common bile duct activity at 10 minutes. Gallbladder activity: Normal at 15 minutes. Small bowel activity: Normal at 15 minutes. Gallbladder ejection fraction % (if calculated): 65 (Normal is >35% at 30 min with Cholecystokinin OR >33% at 60 min with Ensure). Patient symptom reproduction: Concordant symptoms. IMPRESSION: 1. No scintigraphic evidence of acute cholecystitis or common duct obstruction. 2. Gallbladder ejection fraction is within normal limits. Signer Name: Vimal Bautista MD Signed: 09/02/2021 3:56 PM Workstation Name: [id number]
[2021-09-02] MEDS: oxyCODONE /ACETAMINOPHEN 5-325MG TAB PO SCH (19:21)
--- NOTE | 2021-09-02 19:48 | Progress Note ---
Assessment and Plan Assessment and plan: 40-year-old male with no significant past medical history comes in with a 3-day history of progressive worsening right lower chest/right upper quadrant pleuritic chest pain and subjective fever but no nausea, vomiting or diarrhea. No cough. Noted be hypoxic in the ED. The pulse ox of 88% to 91% on room air and appears very short of breath. Not vaccinated against COVID-19. No loss of smell or taste. ED work-up and imaging studies revealed bilateral posterior opacities on the lungs and and ductal dilation in the left lobe of the liver, gallstones and elevated LFTs. GI consulted. Assessment: Acute onset worsening right right lower thorax pleuritic pain x3 days Subjective fever but no documented temperature spike Acute hypoxic respiratory failure Multifocal consolidation in right upper, right lower and left upper lobes on CTA. Elevated D-dimer and CRP 15.9, procalcitonin normal D-dimer 1510, CTA negative for PE. Ultrasound negative for DVT. Mild hyponatremia, resolved Clinical picture, imaging, laboratory findings highly suggestive of COVID-19 infection but PCR test is negative Not vaccinated against COVID-19 Imaging studies show gallstones without wall thickening not suggestive of cholecystitis. HIDA scan negative. Elevated LFTs, predominantly obstructive pattern with ALP 595 and a TBR 2.0 with intrabiliary obstruction on imaging studies, improving MRCP performed Lipase normal. No nausea, vomiting or diarrhea. Tolerating diet. Plan: Consider repeating COVID-19 testing Pulmonary and GI consulted and following GI consulted and evaluation is in progress On empiric antibiotic therapy and supplemental oxygen Hemodynamically stable Adequate pain relief for severe pleuritic chest pain, patient is avoiding pain medications DVT prophylaxis On anticoagulation GI prophylaxis Discussed with the patient in detail. History Interval history: Patient continues to experience significant left pleuritic chest pain with a dyspnea and hypoxia. Needing 6 to 7 L of O2. Prefers not to take any pain medication. Remains afebrile with stable vital signs otherwise. Patient denies any abdominal pain nausea, vomiting or diarrhea. Normal BMs. Tolerating diet well. Eager to go home. Hospitalist Physical - Constitutional Vitals: Temp Pulse Resp BP Pulse Ox 98.1 F 87 17 127/79 95 09/02/21 15:31 09/02/21 15:31 09/02/21 19:21 09/02/21 15:31 09/02/21 15:31 General appearance: Present: mild distress, well-nourished, other (Alert and oriented, moderate dyspneic with tachypnea) - EENT Eyes: Present: PERRL, EOM intact ENT: clear oral mucosa - Neck Neck: Present: supple, other (No JVD) - Respiratory Respiratory effort: labored Respiratory: right: diminished, negative: rales, rhonchi, wheezing - Cardiovascular Rhythm: regular - Extremities Extremities: No edema - Abdominal General gastrointestinal: soft, non-tender, non-distended, normal bowel sounds - Integumentary Integumentary: Absent: rash - Psychiatric Psychiatric: appropriate mood/affect - Neurologic Neurologic: no focal deficits, moves all extremities HEART Score - HEART Score EKG: Non-specific Age: < 45 Risk factors: 1-2 risk factors Troponin: Troponin T < 0.010 ng/mL (0.00-0.029) 08/31/21 10:09 Troponin: < normal limit - Critical Actions Critical Actions: 0-3 pts:0.9-1.7%risk of adverse cardiac event.Candidate for discharge Results - Labs CBC & Chem 7: 09/02/21 05:44 09/02/21 05:44 Labs: Laboratory Last Values WBC 28.1 K/mm3 (4.5-11.0) H 09/02/21 05:44 RBC 4.21 M/mm3 (3.65-5.03) 09/02/21 05:44 Hgb 12.6 gm/dl (11.8-15.2) 09/02/21 05:44 Hct 38.5 % (35.5-45.6) 09/02/21 05:44 MCV 91 fl (84-94) 09/02/21 05:44 MCH 30 pg (28-32) 09/02/21 05:44 MCHC 33 % (32-34) 09/02/21 05:44 RDW 13.1 % (13.2-15.2) L 09/02/21 05:44 Plt Count 332 K/mm3 (140-440) 09/02/21 05:44 Lymph % (Auto) 9.2 % (13.4-35.0) L 08/31/21 10:09 [place] % (Auto) 6.5 % (0.0-7.3) 08/31/21 10:09 Eos % (Auto) 0.1 % (0.0-4.3) 08/31/21 10:09 Baso % (Auto) 0.5 % (0.0-1.8) 08/31/21 10:09 Lymph # (Auto) 1.8 K/mm3 (1.2-5.4) 08/31/21 10:09 [place] # (Auto) 1.3 K/mm3 (0.0-0.8) H 08/31/21 10:09 Eos # (Auto) 0.0 K/mm3 (0.0-0.4) 08/31/21 10:09 Baso # (Auto) 0.1 K/mm3 (0.0-0.1) 08/31/21 10:09 Add Manual Diff Complete 09/02/21 05:44 Total Counted 100 09/02/21 05:44 Seg Neutrophils % [employer] Adf Developer 09/02/21 05:44 Seg Neuts % (Manual) 89.0 % (40.0-70.0) H 09/02/21 05:44 Band Neutrophils % 5.0 % 09/02/21 05:44 Lymphocytes % (Manual) 4.0 % (13.4-35.0) L 09/02/21 05:44 Monocytes % (Manual) 2.0 % (0.0-7.3) 09/02/21 05:44 Nucleated RBC % Not Reportable 09/02/21 05:44 Seg Neutrophils # 16.5 K/mm3 (1.8-7.7) H 08/31/21 10:09 Seg Neutrophils # Man 25.0 K/mm3 (1.8-7.7) H 09/02/21 05:44 Band Neutrophils # 1.4 K/mm3 09/02/21 05:44 Lymphocytes # (Manual) 1.1 K/mm3 (1.2-5.4) L 09/02/21 05:44 Abs React Lymphs (Man) 0.0 K/mm3 09/02/21 05:44 Monocytes # (Manual) 0.6 K/mm3 (0.0-0.8) 09/02/21 05:44 Eosinophils # (Manual) 0.0 K/mm3 (0.0-0.4) 09/02/21 05:44 Basophils # (Manual) 0.0 K/mm3 (0.0-0.1) 09/02/21 05:44 Metamyelocytes # 0.0 K/mm3 09/02/21 05:44 Myelocytes # 0.0 K/mm3 09/02/21 05:44 Promyelocytes # 0.0 K/mm3 09/02/21 05:44 Blast Cells # 0.0 K/mm3 09/02/21 05:44 WBC Morphology Not Reportable 09/02/21 05:44 Hypersegmented Neuts Not Reportable 09/02/21 05:44 Hyposegmented Neuts Not Reportable 09/02/21 05:44 Hypogranular Neuts Not Reportable 09/02/21 05:44 Smudge Cells Not Reportable 09/02/21 05:44 Toxic Granulation Not Reportable 09/02/21 05:44 Toxic Vacuolation Not Reportable 09/02/21 05:44 Dohle Bodies Not Reportable 09/02/21 05:44 Pelger-Huet Anomaly Not Reportable 09/02/21 05:44 Eliceo Rods Not Reportable 09/02/21 05:44 Platelet Estimate Consistent w auto 09/02/21 05:44 Clumped Platelets Not Reportable 09/02/21 05:44 Plt Clumps, EDTA Not Reportable 09/02/21 05:44 Large Platelets Not Reportable 09/02/21 05:44 Giant Platelets Not Reportable 09/02/21 05:44 Platelet Satelliting Not Reportable 09/02/21 05:44 Plt Morphology Comment Not Reportable 09/02/21 05:44 RBC Morphology Normal 09/02/21 05:44 Dimorphic RBCs Not Reportable 09/02/21 05:44 Polychromasia Not Reportable 09/02/21 05:44 Hypochromasia Not Reportable 09/02/21 05:44 Poikilocytosis Not Reportable 09/02/21 05:44 Anisocytosis Not Reportable 09/02/21 05:44 Microcytosis Not Reportable 09/02/21 05:44 Macrocytosis Not Reportable 09/02/21 05:44 Spherocytes Not Reportable 09/02/21 05:44 Pappenheimer Bodies Not Reportable 09/02/21 05:44 Sickle Cells Not Reportable 09/02/21 05:44 Target Cells Not Reportable 09/02/21 05:44 Tear Drop Cells Not Reportable 09/02/21 05:44 Ovalocytes Not Reportable 09/02/21 05:44 Helmet Cells Not Reportable 09/02/21 05:44 Patino-Ko Olina Bodies Not Reportable 09/02/21 05:44 [place]um Rings Not Reportable 09/02/21 05:44 Fer Cells Not Reportable 09/02/21 05:44 Bite Cells Not Reportable 09/02/21 05:44 Crenated Cell Not Reportable 09/02/21 05:44 Elliptocytes Not Reportable 09/02/21 05:44 Acanthocytes (Spur) Not Reportable 09/02/21 05:44 Rouleaux Not Reportable 09/02/21 05:44 Hemoglobin C Crystals Not Reportable 09/02/21 05:44 Schistocytes Not Reportable 09/02/21 05:44 Malaria parasites Not Reportable 09/02/21 05:44 Abel Bodies Not Reportable 09/02/21 05:44 Hem Pathologist Commnt No 09/02/21 05:44 PT 15.7 Sec. (12.2-14.9) H 09/01/21 07:36 INR 1.13 (0.87-1.13) 09/01/21 07:36 D-Dimer 1510.13 ng/mlDDU (0-234) H 08/31/21 10:09 Sodium 137 mmol/L (137-145) 09/02/21 05:44 Potassium 4.3 mmol/L (3.6-5.0) 09/02/21 05:44 Chloride 103.7 mmol/L (98-107) 09/02/21 05:44 Carbon Dioxide 22 mmol/L (22-30) 09/02/21 05:44 Anion Gap 16 mmol/L 09/02/21 05:44 BUN 20 mg/dL (9-20) 09/02/21 05:44 Creatinine 1.1 mg/dL (0.8-1.3) 09/02/21 05:44 Estimated GFR > 60 ml/min 09/02/21 05:44 BUN/Creatinine Ratio 18 % 09/02/21 05:44 Glucose 135 mg/dL (75-100) H 09/02/21 05:44 Calcium 8.8 mg/dL (8.4-10.2) 09/02/21 05:44 Ferritin 451.3 ng/mL (30.0-300.0) H 08/31/21 15:10 Total Bilirubin 0.60 mg/dL (0.1-1.2) 09/02/21 05:44 AST 24 units/L (5-40) 09/02/21 05:44 ALT 52 units/L (7-56) 09/02/21 05:44 Alkaline Phosphatase 352 units/L (35-129) H 09/02/21 05:44 Lactate Dehydrogenase 204 units/L (91-180) H 08/31/21 15:10 Troponin T < 0.010 ng/mL (0.00-0.029) 08/31/21 10:09 C-Reactive Protein 15.90 mg/dL (0.00-1.30) H 08/31/21 15:10 NT-Pro-B Natriuret Pep 18.81 pg/mL (0-450) 08/31/21 10:09 Total Protein 7.0 g/dL (6.3-8.2) 09/02/21 05:44 Albumin 2.5 g/dL (3.9-5) L 09/02/21 05:44 Albumin/Globulin Ratio 0.6 % 09/02/21 05:44 Lipase 14 units/L (13-60) 08/31/21 10:09 Procalcitonin 0.63 ng/mL (<0.15) 08/31/21 15:10 Urine Color Yellow (Yellow) 09/02/21 Unknown Urine Turbidity Clear (Clear) 09/02/21 Unknown Urine pH 6.0 (5.0-7.0) 09/02/21 Unknown Ur Specific [place] 1.024 (1.003-1.030) 09/02/21 Unknown Urine Protein 30 mg/dl mg/dL (Negative) 09/02/21 Unknown Urine Glucose (UA) Neg mg/dL (Negative) 09/02/21 Unknown Urine Ketones Neg mg/dL (Negative) 09/02/21 Unknown Urine Blood Lg (Negative) 09/02/21 Unknown Urine Nitrite Neg (Negative) 09/02/21 Unknown Urine Bilirubin Neg (Negative) 09/02/21 Unknown Urine Urobilinogen 4.0 mg/dL (<2.0) 09/02/21 Unknown Ur Leukocyte Esterase Neg (Negative) 09/02/21 Unknown Urine WBC (Auto) 11.0 /HPF (0.0-6.0) H 09/02/21 Unknown Urine RBC (Auto) > 182.0 /HPF (0.0-6.0) 09/02/21 Unknown U Epithel Cells (Auto) < 1.0 /HPF (0-13.0) 09/02/21 Unknown Urine WBC Clumps Few /HPF 09/02/21 Unknown Urine Mucus Few /HPF 09/02/21 Unknown Ur Yeast w Hyphae Few /HPF 09/02/21 Unknown Urine Yeast (Budding) 3+ /HPF 09/02/21 Unknown Coronavirus (PCR) Negative (Negative) 09/01/21 Unknown Hepatitis A IgM Ab Non-reactive (NonReactive) 09/01/21 07:36 Hep Bs Antigen Nonreactive (Negative) 09/01/21 07:36 Hep B Core IgM Ab Non-reactive (NonReactive) 09/01/21 07:36 Hepatitis C Antibody Non-reactive (NonReactive) 09/01/21 07:36 Microbiology: Microbiology 08/31/21 15:10 Peripheral/Venous Blood Culture - Preliminary NO GROWTH AFTER 48 HOURS 08/31/21 15:16 Peripheral/Venous Blood Culture - Preliminary NO GROWTH AFTER 48 HOURS Salcdeo/IV: Voiding Method Toilet Active Medications - Current Medications Current Medications: Generic Name Dose Route Start Last Admin Trade Name Freq PRN Reason Stop Dose Admin Acetaminophen 650 mg 08/31/21 20:56 Acetaminophen 325 Mg Tab PO Q4H PRN Pain MILD(1-3)/Fever >100.5/MINER Heparin Sodium (Porcine) 5,000 unit 08/31/21 22:00 09/02/21 10:06 Heparin 5,000 Unit/1 Ml Vial SUB-Q 5,000 unit Q12HR BI Administration Azithromycin 500 mg in 250 mls @ 250 mls/hr 08/31/21 22:00 09/01/21 22:04 Zithromax/Ns IV 09/04/21 22:59 250 mls/hr Q24H BI Administration Piperacillin Sod/Tazobactam Sod 4.5 gm in 100 mls @ 200 mls/hr 09/01/21 10:00 09/02/21 17:13 Zosyn/Ns 4.5gm/100ml IV 200 mls/hr Q8H BI Administration Ketorolac Tromethamine 30 mg 09/02/21 19:00 Ketorolac 30 Mg/1 Ml Inj IV 09/05/21 18:59 Q8H BI Ondansetron HCl 4 mg 08/31/21 20:56 Ondansetron 4 Mg/2 Ml Inj IV Q8H PRN Nausea And Vomiting Oxycodone/Acetaminophen 1 tab 08/31/21 20:56 09/01/21 22:03 Oxycodone /Acetaminophen 5-325mg Tab PO 1 tab Q6H PRN Administration Pain, Moderate (4-6) Oxycodone/Acetaminophen 1 tab 09/02/21 19:00 09/02/21 19:21 Oxycodone /Acetaminophen 5-325mg Tab PO 1 tab TID BI Administration Sodium Chloride 10 ml 08/31/21 22:00 09/02/21 10:54 Sodium Chloride 0.9% 10 Ml Flush Syringe IV 10 ml BID BI Administration Sodium Chloride 10 ml 08/31/21 20:56 Sodium Chloride 0.9% 10 Ml Flush Syringe IV PRN PRN LINE FLUSH Nutrition/Malnutrition Assess - Dietary Evaluation Nutrition/Malnutrition Findings: Nutrition Notes Start: 09/01/21 1 7:12 Freq: Status: Active Protocol: Document 09/01/21 17:12 GISELLE (Rec: 09/01/21 17:42 GISELLE [id number]) Nutrition Notes Need for Assessment generated from: MD Order Initial or Follow up Assessment Current Diagnosis Respiratory Failure Other Pertinent Diagnosis SIRS, Pneumonia, Intrahepatic bile duct dilation, Transaminitis. Current Diet NPO (since 09/01 12:26). Labs/Tests 09/01: Na 134, CO2 21, Glu 186 , ALT 62, AlkPhos 380, LacDH 204, C-RP 15.9, Alb 2.8. Pertinent Medications 09/01: Nutritionally unremarkable. Height 6 ft Weight 105.5 kg [place] Body Weight (kg) 80.90 BMI 31.5 Intake Prior to Admission Excellent Weight Status Obese Subjective/Other Information RD consult for Skin risk assessment; < or = 18, and Dietray supplements order. Pt shows no signs [facility], according to Physical Assessment History notes. Pt is currently on NPO, not a candidate for dietary supplements at the time. Percent of energy/protein needs met: Pt currently on NPO. Burn Absent Trauma Absent GI Symptoms Nausea Food Allergy No Skin Integrity/Comment lClear, warm, dry. Current % PO Good (75-100%) Minimum of two criteria No #1 Nutrition Diagnosis No nutrition diagnosis at this time Comments: Pt shows no signs of concern for skin risk at the trime, according to Physical Assessment History notes. Pt is currently on NPO, not a candidate for dietary supplements at the time. Is patient on ventilator? No Is Patient Ambulatory and/or Out of Bed Yes REE-([place]. Jeor-ambulatory/OOB) [ 2597.400 NUTR.MSJOOB] Kcal/Kg value to use for calculation 20 Approximate Energy Requirements Using 2110 kcal/Kg Calculation Used for Recommendations Kcal/kg Additional Notes Protein: 1-1.2 g/Kg; 81-97 g/ day (from IBW + critical care) . Fluids: 1 ml/Kcal, or as per MD. Nutrition Intervention Change Diet Order: Continue NPO as per MD; when pertinent, advance to Cardiac Diet. Goal #1 Maintain body weight within +/ -3% of admission BWt during LOS. Goal #2 Reach and maintain acceptable chemistry lab values during LOS. Follow-Up By: 09/08/21 Additional Comments Continue monitoring food tolerance, %PO intake of meals , Hydration, and BM.
[2021-09-02] MEDS: AZITHROMYCIN/NS 500 MG/250 ML 500 MG/250 ML BAG IV SCH (22:11)
[2021-09-02] MEDS: KETOROLAC 30 MG/1 ML INJ IV SCH (22:11)
[2021-09-03] MEDS: PIPERACIL/TAZOBACTA 4.5/NS 100 4.5 GM/100 ML VIAL IV SCH ×2 (02:30→09:58)
[2021-09-03] MEDS: KETOROLAC 30 MG/1 ML INJ IV SCH ×2 (03:34→12:51)
[2021-09-03] MEDS: oxyCODONE /ACETAMINOPHEN 5-325MG TAB PO SCH ×2 (09:58→13:59)
[2021-09-03] MEDS: HEPARIN 5,000 UNIT/1 ML VIAL SUB-Q SCH (09:58)
--- NOTE | 2021-09-03 13:23 | Progress Note ---
Assessment and Plan Incentive woo Abx OOB to chair and ambulate if possible. Subjective Date of service: 09/03/21 Principal diagnosis: Abnl LFT Interval history: No acute events. Still on 8 liters. But sats are good. Objective Vital Signs - 12hr 09/03/21 09/03/21 09/03/21 03:34 04:26 07:28 Temperature 98.3 F Pulse Rate 78 Respiratory 17 18 Rate Blood Pressure 126/78 O2 Sat by Pulse 97 96 Oximetry 09/03/21 09/03/21 09:58 12:51 Temperature Pulse Rate Respiratory 18 18 Rate Blood Pressure O2 Sat by Pulse Oximetry CBC and BMP: 09/02/21 05:44 09/02/21 05:44 ABG, PT/INR, D-dimer: PT/INR, D-dimer PT 15.7 Sec. (12.2-14.9) H 09/01/21 07:36 INR 1.13 (0.87-1.13) 09/01/21 07:36 D-Dimer 1510.13 ng/mlDDU (0-234) H 08/31/21 10:09 Abnormal lab findings: Abnormal Labs 08/31/21 08/31/21 08/31/21 10:09 10:09 10:09 WBC 19.7 H RBC 5.42 H Hgb 16.3 H Hct 49.8 H RDW Lymph % (Auto) 9.2 L [place] # (Auto) 1.3 H Seg Neutrophils % 83.7 H Seg Neuts % (Manual) Lymphocytes % (Manual) Seg Neutrophils # 16.5 H Seg Neutrophils # Man Lymphocytes # (Manual) Monocytes # (Manual) PT D-Dimer 1510.13 H Sodium 132 L Chloride 96.5 L Carbon Dioxide Glucose 140 H Ferritin Total Bilirubin 2.00 H AST 57 H ALT 120 H Alkaline Phosphatase 595 H Lactate Dehydrogenase C-Reactive Protein Total Protein 8.6 H Albumin 3.5 L Urine WBC (Auto) 08/31/21 08/31/21 09/01/21 15:10 15:10 07:36 WBC 25.1 H RBC Hgb Hct RDW 12.9 L Lymph % (Auto) [place] # (Auto) Seg Neutrophils % Seg Neuts % (Manual) 87.0 H Lymphocytes % (Manual) 2.0 L Seg Neutrophils # Seg Neutrophils # Man 21.8 H Lymphocytes # (Manual) 0.5 L Monocytes # (Manual) 1.5 H PT D-Dimer Sodium Chloride Carbon Dioxide Glucose Ferritin 451.3 H Total Bilirubin AST ALT Alkaline Phosphatase Lactate Dehydrogenase 204 H C-Reactive Protein 15.90 H Total Protein Albumin Urine WBC (Auto) 09/01/21 09/01/21 09/02/21 07:36 07:36 05:44 WBC 28.1 H RBC Hgb Hct RDW 13.1 L Lymph % (Auto) [place] # (Auto) Seg Neutrophils % Seg Neuts % (Manual) 89.0 H Lymphocytes % (Manual) 4.0 L Seg Neutrophils # Seg Neutrophils # Man 25.0 H Lymphocytes # (Manual) 1.1 L Monocytes # (Manual) PT 15.7 H D-Dimer Sodium 134 L Chloride Carbon Dioxide 21 L Glucose 186 H Ferritin Total Bilirubin AST ALT 62 H Alkaline Phosphatase 380 H Lactate Dehydrogenase C-Reactive Protein Total Protein Albumin 2.8 L Urine WBC (Auto) 09/02/21 09/02/21 05:44 Unknown WBC RBC Hgb Hct RDW Lymph % (Auto) [place] # (Auto) Seg Neutrophils % Seg Neuts % (Manual) Lymphocytes % (Manual) Seg Neutrophils # Seg Neutrophils # Man Lymphocytes # (Manual) Monocytes # (Manual) PT D-Dimer Sodium Chloride Carbon Dioxide Glucose 135 H Ferritin Total Bilirubin AST ALT Alkaline Phosphatase 352 H Lactate Dehydrogenase C-Reactive Protein Total Protein Albumin 2.5 L Urine WBC (Auto) 11.0 H
[2021-09-03] MEDS ORDERED: predniSONE 20 MG TAB PO SCH (14:00)
[2021-09-03 17:37] VITALS: BP 116/61
--- NOTE | 2021-09-03 20:06 | Discharge Summary ---
Providers - Providers Date of Admission: 08/31/21 14:59 Date of discharge: 09/03/21 (Left AMA) Attending physician: TOMASZ ACEVEDO MD 08/31/21 15:17 Consult to Physician [CONS] Routine Comment: Consulting Provider: LAKISHA BERNSTEIN Physician Instructions: Reason For Exam: elevated bili/alk phose, abnormal CT abd/pel 09/02/21 08:49 Consult to Physician [CONS] Routine Comment: Consulting Provider: GRACE YAN Physician Instructions: Reason For Exam: Pneumonia 09/02/21 08:50 Consult to Physician [CONS] Routine Comment: Consulting Provider: ERIN CELAYA Physician Instructions: Reason For Exam: Pneumonia versus cholangitis Primary care physician: DIGITAL MEDIA SPECIALIST Hospitalization Condition: Serious Hospital course: 40-year-old male with no significant past medical history comes in with a 3-day history of progressive worsening right lower chest/right upper quadrant pleuritic chest pain and subjective fever but no nausea, vomiting or diarrhea. No cough. Noted be hypoxic in the ED. The pulse ox of 88% to 91% on room air and appears very short of breath. Not vaccinated against COVID-19. No loss of smell or taste. ED work-up and imaging studies revealed bilateral posterior opacities on the lungs and and ductal dilation in the left lobe of the liver, gallstones and elevated LFTs. GI consulted. Assessment: Acute onset worsening right right lower thorax pleuritic pain x3 days Subjective fever but no documented temperature spike Acute hypoxic respiratory failure Multifocal consolidation in right upper, right lower and left upper lobes on CTA. Elevated D-dimer and CRP 15.9, procalcitonin normal D-dimer 1510, CTA negative for PE. Ultrasound negative for DVT. Mild hyponatremia, resolved Clinical picture, imaging, laboratory findings highly suggestive of COVID-19 infection but PCR test is negative Not vaccinated against COVID-19 Imaging studies show gallstones without wall thickening not suggestive of cholecystitis. HIDA scan negative. Elevated LFTs, predominantly obstructive pattern with ALP 595 and a TBR 2.0 with intrabiliary obstruction on imaging studies, improving MRCP performed Lipase normal. No nausea, vomiting or diarrhea. Tolerating diet. Plan: Ordered a repeat COVID-19 test Pulmonary and GI consulted and following Per GI, GI symptoms/findings not the primary problem On empiric antibiotic therapy and supplemental oxygen Discussed with the pulmonary, to start empiric steroid therapy Hemodynamically stable Adequate pain relief for severe pleuritic chest pain, patient is avoiding pain medications DVT prophylaxis On anticoagulation GI prophylaxis Disposition: Patient left AMA since he started feeling better. However, he still needing supplemental oxygen. Discussed in detail the dangers of leaving prematurely including worsening respiratory failure and even . Patient verbalized his understanding in the presence of his but he still wanted to leave AMA and to be followed by his PCP. Disposition: LEFT AGAINST MEDICAL ADVICE Final Discharge Diagnosis (Prints w/discharge instructions): Multifocal pneumonia. Acute hypoxic respiratory failure. Elevated D-dimer and CRP, Covid PCR test negative. Intrahepatic biliary ductal dilatation with elevated alkaline phosphatase improving. Left hospital AGAINST MEDICAL ADVICE Core Measure Documentation - Palliative Care Palliative Care/ Comfort Measures: Not Applicable - Core Measures Any of the following diagnoses?: none Exam - Constitutional Vitals: Temp Pulse Resp BP Pulse Ox 98.8 F 81 16 116/61 93 09/03/21 16:52 09/03/21 16:52 09/03/21 16:52 09/03/21 16:52 09/03/21 16:52 General appearance: Present: mild distress, other (Alert and oriented) - EENT Eyes: Present: PERRL ENT: clear oral mucosa - Neck Neck: Present: supple, masses or JVD - Respiratory Respiratory effort: labored (Mild dyspnea at rest, able to speak long sentences well.) Respiratory: right: diminished - Cardiovascular Rhythm: regular - Extremities Extremities: No edema - Abdominal General gastrointestinal: Present: soft, non-tender, non-distended, normal bowel sounds - Integumentary Integumentary: Absent: jaundice, rash - Musculoskeletal Musculoskeletal: strength equal bilaterally - Psychiatric Psychiatric: appropriate mood/affect - Neurologic Neurologic: no focal deficits, moves all extremities Plan Follow up with: PRIMARY CARE, [Primary Care Provider] - 3-5 Days
== END 2021-09-03 18:05 | disposition left against medical advice (07) | DRG 193 ==
LOC: ED 09:21 → 3A 14:59
PROVIDERS: ADMIT Internal Medicine; ATTEND Internal Medicine
DX: J18.9 Pneumonia, unspecified organism (principal); J96.01 Acute respiratory failure with hypoxia; R17 Unspecified jaundice; R65.10 Systemic inflammatory response syndrome (SIRS) of non-infectious origin without acute organ dysfunction; Q44.5 Other congenital malformations of bile ducts; E87.1 Hypo-osmolality and hyponatremia; E44.1 Mild protein-calorie malnutrition; K80.50 Calculus of bile duct without cholangitis or cholecystitis without obstruction; Z20.822 Contact with and (suspected) exposure to COVID-19; K83.8 Other specified diseases of biliary tract; Z68.31 Body mass index [BMI] 31.0-31.9, adult
CPT/HCPCS: 36415; 71045; 71275; 74019; 74177; 74181; 78227; 80053; 80074; 81001; 82728; 83615; 83690; 83880; 84145; 84484; 85007; 85025; 85379; 85610; 86140; 87040; 87086; 93005; 93970; 94760; G0378; J3490; Q0162; A9537; J0456; J0696; J1100; J1644; J1885; J2270; J2543; J2805; J7030; J7512; Q9967; U0003

== ENCOUNTER 2022-04-08 14:31 | Emergency (ER) | payer SELFPAY | END 2022-04-08 20:55 | disposition home or self-care (01) | LOC: ED 14:31 | DX: S69.91XA Unspecified injury of right wrist, hand and finger(s), initial encounter (principal); Z53.21 Procedure and treatment not carried out due to patient leaving prior to being seen by health care provider; W19.XXXA Unspecified fall, initial encounter; Y93.89 Activity, other specified; Y92.89 Other specified places as the place of occurrence of the external cause; Y99.8 Other external cause status ==